=== PATIENT | female | born 1945 | race Caucasian/White ===

== ENCOUNTER 2020-01-12 14:55 | Outpatient (CLI) | payer MEDICARE, SELFPAY ==
--- NOTE | ~2020-01-12 | MM_ITS ---
EXAMINATION: MM screening [facility] w lacey HISTORY: Screening mammogram TECHNIQUE: Craniocaudal and mediolateral oblique 3-D tomosynthesis images were obtained and synthetic 2-D images were generated. CAD analysis was submitted and interpreted. COMPARISON: 01/09/2019, 01/04/2018, 12/31/2016 bilateral digital screening mammogram examinations BREAST PARENCHYMAL COMPOSITION: The breasts are almost entirely fatty. FINDINGS: There is a biopsy marker on the right; history of prior right partial mastectomy for breast cancer in 2007. There is no evidence of suspicious mass, calcification, or architectural distortion to suggest malignancy in either breast. There has been no suspicious interval change. IMPRESSION: 1. No mammographic evidence of malignancy. 2. Recommend routine screening mammography in one year. BI-RADS Category 2: Benign finding(s). Reviewed, dictated and finalized at location A.
== END 2020-01-12 14:56 | disposition home or self-care (01) ==
PROVIDERS: PCP Family Medicine Adolescent Medicine; Visit Provider Family Medicine Adolescent Medicine
DX: Z12.31 Encounter for screening mammogram for malignant neoplasm of breast (principal)
CPT/HCPCS: 77063; 77067

== ENCOUNTER 2020-02-02 00:15 | Outpatient (CLI) | payer MEDICARE, SELFPAY ==
[2020-02-02 20:58] LABS: SARS-CoV-2 RNA PCR Negative
== END 2020-02-02 00:16 | disposition home or self-care (01) ==
LOC: ANHCOVIDDT 00:16
PROVIDERS: PCP Family Medicine Adolescent Medicine; Visit Provider Internal Medicine Gastroenterology
DX: Z01.812 Encounter for preprocedural laboratory examination (principal); Z11.59 Encounter for screening for other viral diseases
CPT/HCPCS: 87635; C9803; U0003

== ENCOUNTER 2020-02-05 01:16 | Day surgery (SDC) | payer MEDICARE, SELFPAY ==
[2020-01-30 13:19] VITALS: BMI 30.4
--- NOTE | 2020-02-05 08:24 | WPDANESEPPF ---
Anes - Initial Pre Proc Eval Procedure: Operation Date: 02/05/20 09:30 Proposed Procedures p Colonoscopy - Edmund Cuevas MD Date/Time: 02/05/20 08:24 Surgeon: Edmund Cuevas MD Pre Op Diagnosis: abn stool Patient Data Age: 74 Gender: F Height: 1.64 m Weight: 81.8 kg Allergies Allergy/AdvReac Type Severity Reaction Status Date / Time adhesive tape Allergy Rash Verified 02/05/20 08:19 Home Medications Medication Instructions Recorded Confirmed Type aspirin [Julio Aspirin] 325 mg PO DAILY 01/30/20 01/30/20 History hydrochlorothiazide 50 mg PO DAILY PRN 01/30/20 01/30/20 History Patient hx anesthesia problems: none Family hx anesthesia problems: none PMFSH Past Medical History Medical History (Updated 02/05/20 @ 08:32 by Javi Prater MD) Arthritis Cancer BREAST - HAD 2007 LUMPECTOMY Irregular heartbeat HAD 2 AV NODES, 2003 HAD ABLATION Family History Family History (Updated 04/05/14 @ 07:13 by DOCTOR UNKNOWN) Father Family history of coronary artery disease Social History Social History Smoking status: Never smoker Second hand tobacco smoke exposure: No Alcohol intake: current Anes - Eval Final PreProcedure Day of Procedure 02/05/20 08:24 Patient weight: obese Heart: regular rate and rhythm Lungs: clear to auscultation and normal air movement Airway: Mallampati scale class II Neurological: alert and oriented Last oral intake: >/= 8 hours ASA classification: III Emergent: no Anesthetic plan: proceed Anesthesia type and monitoring: general GIVS Informed Consent: The patient's anesthetic plan and its attendant risks and benefits were discussed with the patient/family/POA. Questions were solicited and answers provided to the satisfaction of the patient/family/POA.
[2020-02-05 08:38] VITALS: BP 107/57; PULSE 76; RESP 20; TEMP 36.1; O2SAT 97
[2020-02-05] MEDS: LACTATED RINGERS 1,000 ML 150 ML IV CONT (08:42)
--- NOTE | 2020-02-05 08:59 | WPDGICN ---
Assessment and Plan Assessment and plan (1) Positive FIT (fecal immunochemical test): Code(s): R19.5 - Other fecal abnormalities Status: Acute Assessment and Plan: Patient had positive stool FIT test. She has had discomfort with the hemorrhoids. In occasional left-sided abdominal pain. Plan is for screening colonoscopy it has been 10 years since last screening exam. High-fiber diet is advised. Further recommendations will be given after endoscopy. GI Consult Note Consult date/time: 02/05/20 08:59 HPI: Ruby Callahan is a 74 year old female seen in evaluation at the request of DR Jd Acosta. Patient reported to have a positive FIT test as an outpatient. She states she has had hemorrhoid problems with a rate occasional rectal pain discomfort in blood with wiping. Patient has had a history of a fall with subsequent discomfort on her left arm and left side of her abdomen. That has persisted. She was treated empirically for diverticulitis with Cipro because of the left-sided abdominal discomfort. Review of Systems Review of Systems: All systems reviewed & are unremarkable except as noted in HPI and below PMFSH Past Medical History Medical History Arthritis Cancer BREAST - HAD 2007 LUMPECTOMY Irregular heartbeat HAD 2 AV NODES, 2003 HAD ABLATION Family History Family History Father Family history of coronary artery disease Social History Social History Smoking status: Never smoker Second hand tobacco smoke exposure: No Alcohol intake: current Meds Home Medications and Allergies Home Medications Medication Instructions Recorded Confirmed Type aspirin [Julio Aspirin] 325 mg PO DAILY 01/30/20 01/30/20 History hydrochlorothiazide 50 mg PO DAILY PRN 01/30/20 01/30/20 History Allergies Allergy/AdvReac Type Severity Reaction Status Date / Time adhesive tape Allergy Rash Verified 02/05/20 08:19 Vital Signs Vital Signs - 24 hr 02/05/20 08:38 Temperature 36.1 C L Pulse Rate 76 Respiratory Rate 20 Blood Pressure 107/57 L Pulse Oximetry 97 Exam Narrative: Exam Narrative: Physical exam reveals patient to be alert. Vital signs stable. HEENT exam unremarkable. Lungs are clear to auscultation and percussion. Heart is without murmur or extra sounds. Abdominal exam bowel sounds are present soft nontender with no hepatosplenomegaly. Digital external rectal exam normal.
[2020-02-05] MEDS: SIMETHICONE ORAL SUSPENSION 20 MG/0.3 ML 30 ML BOTTLE 0.6 ML IRRIGATION (09:51)
[2020-02-05 10:00] VITALS: BP 91/50; PULSE 66; RESP 19; O2SAT 96
[2020-02-05 10:10] VITALS: BP 89/47; PULSE 61; RESP 15; O2SAT 96
[2020-02-05 10:15] VITALS: BP 91/51; PULSE 60; RESP 13; O2SAT 95
== END 2020-02-05 10:29 | disposition home or self-care (01) ==
PROVIDERS: PCP Family Medicine Adolescent Medicine; Visit Provider Internal Medicine Gastroenterology
PROC: 0DJD8ZZ Inspection of Lower Intestinal Tract, Via Natural or Artificial Opening Endoscopic (ICD-10-PCS; CPT 45378; principal; 2020-02-05 09:30)
DX: K92.1 Melena (principal); D12.5 Benign neoplasm of sigmoid colon; K57.30 Diverticulosis of large intestine without perforation or abscess without bleeding; K64.8 Other hemorrhoids; Z79.82 Long term (current) use of aspirin; Z85.3 Personal history of malignant neoplasm of breast
CPT/HCPCS: 45385; 88305; J2001; J2704; J7120

== ENCOUNTER 2020-09-27 13:42 | Outpatient (CLI) | payer MEDICARE, SELFPAY ==
--- NOTE | ~2020-09-27 | DEXA_ITS ---
Bone Density Report Name: Ruby Callahan Age: 74 Sex: Female Ethnicity: White Date of : 1945 Indication: postmenopausal; height loss; cancer; Referring Provider: ROSAURA DURHAM Study: Bone densitometry was performed. Exam Date: September 27, 2020 Accession number: [id number] Bone Density: Region BMD T-score Z-score Classification AP Spine (L1-L4) 1.047 0.0 2.5 Normal Femoral Neck (Left) 0.814 -0.3 1.8 Normal Total Hip (Left) 0.945 0.0 1.9 Normal Total Hip Bilateral Avg 0.941 0.0 1.9 Normal Femoral Neck (Right) 0.801 -0.4 1.7 Normal Total Hip (Right) 0.937 0.0 1.8 Normal World Health Organization criteria for BMD impression classify patients as: Normal (T-score at or above -1.0), Osteopenia (T-score between -1.0 and -2.5), or Osteoporosis (T-score at or below -2.5). 10-year Fracture Risk: FRAX not reported because: All T-scores for Spine Total, Hip Total, Femoral Neck at or above -1.0 Previous Exams: Region Exam Age BMD T-score BMD Change BMD Change Date g/cm2 vs Baseline vs Previous AP Spine(L1-L4) 09/27/2020 74 1.047 0.0 0.071(7.3%)# 0.017(1.7%) 05/31/2017 71 1.030 -0.2 0.054(5.6%)# 0.010(1.0%) 12/26/2014 69 1.020 -0.2 0.044(4.5%)# 0.030(3.0%)# 12/23/2012 67 0.990 -0.5 0.014(1.4%)# -0.008(-0.8%)# 11/17/2010 65 0.998 -0.4 0.022(2.2%) -0.034(-3.3%)* 08/27/2008 62 1.032 -0.1 0.056(5.8%)* 0.056(5.8%)* 08/17/2005 59 0.976 -0.6 Total Hip(Left) 09/27/2020 74 0.945 0.0 -0.068(-6.7%)# -0.022(-2.3%) 05/31/2017 71 0.967 0.2 -0.046(-4.5%)# -0.014(-1.4%) 12/26/2014 69 0.981 0.3 -0.032(-3.2%)# 0.058(6.2%)# 12/23/2012 67 0.923 -0.2 -0.090(-8.8%)# -0.091(-8.9%)# 11/17/2010 65 1.014 0.6 0.001(0.1%) -0.011(-1.1%) 08/27/2008 62 1.025 0.7 0.012(1.2%) 0.012(1.2%) 08/17/2005 59 1.013 0.6 Total Hip(Right) 09/27/2020 74 0.937 0.0 -0.049(-4.9%)# -0.026(-2.7%) 05/31/2017 71 0.963 0.2 -0.023(-2.3%)# 0.003(0.3%) 12/26/2014 69 0.960 0.1 -0.025(-2.6%)# -0.008(-0.9%)# 12/23/2012 67 0.968 0.2 -0.017(-1.7%)# -0.013(-1.4%)# 11/17/2010 65 0.982 0.3 -0.004(-0.4%) -0.012(-1.2%) 08/27/2008 62 0.993 0.4 0.008(0.8%) 0.008(0.8%) 08/17/2005 59 0.985 0.4 *Denotes significance at 95% confidence level, LSC for AP Spine = 0.022 g/cm2, LSC for Total Hip = 0.027 g/cm2 Clinical Information Provided by Patient: Has used the following medicat
== END 2020-09-27 13:43 | disposition home or self-care (01) ==
LOC: ANHIMG 13:43
PROVIDERS: Family Provider Family Medicine Adolescent Medicine; PCP Family Medicine Adolescent Medicine; Visit Provider Obstetrics & Gynecology
DX: Z78.0 Asymptomatic menopausal state (principal)
CPT/HCPCS: 77080

== ENCOUNTER 2021-01-14 16:46 | Outpatient (CLI) | payer MEDICARE, SELFPAY ==
--- NOTE | ~2021-01-14 | MM_ITS ---
EXAMINATION: MM screening [facility] BI w lacey HISTORY: Screening mammogram TECHNIQUE: Craniocaudal and mediolateral oblique 3-D tomosynthesis images were obtained and synthetic 2-D images were generated. CAD analysis was submitted and interpreted. COMPARISON: 01/12/2020, 01/26/2019, 01/04/2018 bilateral digital screening mammogram examinations BREAST PARENCHYMAL COMPOSITION: The breasts are almost entirely fatty. FINDINGS: There is a biopsy marker on the right; history of prior benign right breast biopsy x2 and 2 008 partial mastectomy for breast cancer. There is no evidence of suspicious mass, calcification, or architectural distortion to suggest malignancy in either breast. There has been no suspicious interva l change. IMPRESSION: 1. No mammographic evidence of malignancy. 2. Recommend routine screening mammography in one year. BI-RADS Category 2: Benign finding(s). Reviewed, dictated and finalized at location A.
== END 2021-01-14 16:47 | disposition home or self-care (01) ==
LOC: ANHIMG 16:51
PROVIDERS: PCP Family Medicine Adolescent Medicine; Visit Provider Family Medicine Adolescent Medicine
DX: Z12.31 Encounter for screening mammogram for malignant neoplasm of breast (principal)
CPT/HCPCS: 77063; 77067

== ENCOUNTER 2022-04-06 14:09 | Outpatient (CLI) | payer MEDICARE, SELFPAY ==
--- NOTE | ~2022-04-06 | MM_ITS ---
EXAMINATION: MM screening [facility] BI w lacey HISTORY: Screening mammogram TECHNIQUE: Craniocaudal and mediolateral oblique 3-D tomosynthesis images were obtained and synthetic 2-D images were generated. CAD analysis was submitted and interpreted. COMPARISON: 01/14/2021, 01/12/2020, 01/09/2019 BREAST PARENCHYMAL COMPOSITION: There are scattered areas of fibroglandular density. FINDINGS: There is no suspicious mass, calcification, or architectural distortion to suggest malignan cy in either breast. There has been no suspicious interval change. IMPRESSION: 1. No mammographic evidence of malignancy. 2. Recommend routine screening mammography in one year. BI-RADS Category 1: Negative Reviewed, dictated and finalized at location A.
== END 2022-04-06 14:10 | disposition home or self-care (01) ==
LOC: ANHIMG 14:11
PROVIDERS: PCP Family Medicine Adolescent Medicine; Visit Provider Family Medicine Adolescent Medicine
DX: Z12.31 Encounter for screening mammogram for malignant neoplasm of breast (principal)
CPT/HCPCS: 77063; 77067

== ENCOUNTER 2022-12-01 15:01 | Outpatient (CLI) | payer MEDICARE, SELFPAY ==
[2022-12-01 15:38] LABS: Alanine Aminotransferase 21 U/L (6-35); Albumin Level 4.3 g/dL (3.5-5.1); Alkaline Phosphatase 69 U/L (38-126); Anion Gap 6 mmol/L (8-16); Aspartate Amino Transferase 26 U/L (14-36); Bilirubin,Total 0.5 mg/dL (0.2-1.3); Blood Urea Nitrogen 13 mg/dL (7-17); Calcium 9.4 mg/dL (8.4-10.2); Carbon Dioxide 29 mmol/L (22-30); Chloride 103 mmol/L (98-107); Estimated Glomerular Filt Rate 53; Glucose 102 mg/dL (65-110); Potassium 4.3 mmol/L (3.4-5.0); Sodium 138 mmol/L (137-145)
== END 2022-12-01 15:02 | disposition home or self-care (01) ==
PROVIDERS: PCP Family Medicine Adolescent Medicine; Visit Provider Family Medicine Adolescent Medicine
DX: R10.12 Left upper quadrant pain (principal); R10.32 Left lower quadrant pain; R19.7 Diarrhea, unspecified
CPT/HCPCS: 36415; 80053; 84443

== ENCOUNTER → 2022-12-03 13:18 | Outpatient (CLI) | payer MEDICARE, SELFPAY ==
--- NOTE | ~2022-12-03 | CT_ITS ---
EXAMINATION: CT abdomen pelvis wo con DATE: 12/03/2022 13:35 INDICATION: Left-sided abdominal TECHNIQUE: Computed tomography (CT) of the abdomen and pelvis was performed without intravenous contr ast. The dose-length product (DLP) was 892.78 mGy-cm. Automated exposure control and iterative recons truction technique were employed. COMPARISON: None FINDINGS: Minimal dependent atelectasis is present in the lung bases. The heart size is normal. The l iver, spleen, pancreas, gallbladder, and adrenal glands are normal. The kidneys are unremarkable. No stones are identified in the kidneys, ureters, or bladder. No hydronephrosis or hydroureter. No patho logically enlarged abdominal or pelvic lymph nodes are identified. Colonic diverticulosis is present without evidence of diverticulitis. No free intraperitoneal gas or evidence of bowel obstruction. The re is a 2.9 cm simple cyst of the left adnexa. There is a ashley appearance of the small bowel mesente ry which could reflect sclerosing mesenteritis. A fat-containing umbilical hernia is noted. There is mild lumbar spondylosis. IMPRESSION: 1. No CT correlate for the patient's symptoms. Reviewed, dictated and finalized at location L.
== END ==
PROVIDERS: PCP Family Medicine Adolescent Medicine; Visit Provider Family Medicine Adolescent Medicine
DX: R10.12 Left upper quadrant pain (principal); R10.32 Left lower quadrant pain
CPT/HCPCS: 74176

== ENCOUNTER 2022-12-08 13:13 | Outpatient (CLI) | payer MEDICARE, SELFPAY ==
[2022-12-08 13:38] LABS: Hematocrit 39.1 % (37.0-47.0); Hemoglobin 13.3 g/dL (12.0-15.0); Mean Corpuscular Hemoglobin 34.5 pg (26-34); Mean Corpuscular Volume 101.3 fl (80-100); Mean Platelet Volume 11.5 fl (7.4-10.4); Platelet Count Result 226 k/mm3 (150-375); Red Blood Count 3.86 M/mm3 (4.2-5.4); Red Cell Distribution Width 11.9 % (11.5-14.5); White Blood Count 5.7 K/mm3 (4.5-10.0)
== END 2022-12-08 13:14 | disposition home or self-care (01) ==
LOC: ANHLAB 13:15
PROVIDERS: PCP Family Medicine Adolescent Medicine; Visit Provider Family Medicine Adolescent Medicine
DX: R10.32 Left lower quadrant pain (principal); R10.12 Left upper quadrant pain
CPT/HCPCS: 36415; 85027

== ENCOUNTER → 2023-06-22 11:58 | Outpatient (CLI) | payer MEDICARE, SELFPAY ==
--- NOTE | ~2023-06-22 | MM_ITS ---
EXAMINATION: MM screening [facility] BI w lacey HISTORY: Screening mammogram TECHNIQUE: Craniocaudal and mediolateral oblique 3-D tomosynthesis images were obtained and synthetic 2-D images were generated. CAD analysis was submitted and interpreted. COMPARISON: 04/06/2022, 01/14/2021, 01/12/2020 BREAST PARENCHYMAL COMPOSITION: There are scattered areas of fibroglandular density. FINDINGS: No suspicious mass, calcification, or architectural distortion are identified in either saida ast to suggest malignancy. There has been no suspicious interval change. IMPRESSION: 1. No mammographic evidence of malignancy. 2. Recommend routine screening mammography in one year. BI-RADS Category 1: Negative Reviewed, dictated and finalized at location A. CTOR OF SUSTAINABILITY
== END ==
PROVIDERS: PCP Family Medicine Adolescent Medicine; Visit Provider Obstetrics & Gynecology
DX: Z12.31 Encounter for screening mammogram for malignant neoplasm of breast (principal)
CPT/HCPCS: 77063; 77067

== ENCOUNTER 2023-09-30 14:53 | Outpatient (CLI) | payer MEDICARE, SELFPAY ==
[2023-10-02 02:18] LABS: CA-125 16 U/mL (<35)
== END 2023-09-30 14:54 | disposition home or self-care (01) ==
LOC: ANHLAB 14:55
PROVIDERS: PCP Family Medicine Adolescent Medicine; Visit Provider Obstetrics & Gynecology
DX: N83.202 Unspecified ovarian cyst, left side (principal); N83.9 Noninflammatory disorder of ovary, fallopian tube and broad ligament, unspecified; R19.09 Other intra-abdominal and pelvic swelling, mass and lump
CPT/HCPCS: 36415; 86304

== ENCOUNTER → 2023-10-05 13:32 | Outpatient (CLI) | payer MEDICARE, SELFPAY ==
--- NOTE | ~2023-10-05 | US_ITS ---
EXAMINATION: US pelvic complete w TV DATE: 10/05/2023 14:04 INDICATION: Unspecified ovarian cyst TECHNIQUE: Multiple transabdominal and endovaginal sonographic images of the pelvis were obtained. COMPARISON: CT, 12/03/2022 FINDINGS: The uterus measures 5.6 x 2.0 x 3.3 cm. The endometrial complex measures 2 mm. The right ov casey is not visualized however no right adnexal abnormality is seen. The left ovary measures 3.0 x 3.7 x 2.9 cm and contains a 3.4 cm simple cyst. There is normal vascular flow in the left ovary. There i s no free fluid in the pelvis. IMPRESSION: 1. 3.4 cm simple cyst of the left ovary. Follow-up ultrasound in 12 months is recommended. Reviewed, dictated and finalized at location L. ECTION OFFICER IMPRESSION: 1. 3.4 cm simple cyst of the left ovary. Follow-up ultrasound in 12 months is r ecommended.
== END ==
PROVIDERS: PCP Family Medicine Adolescent Medicine; Visit Provider Obstetrics & Gynecology
DX: N83.292 Other ovarian cyst, left side (principal)
CPT/HCPCS: 76830; 76856

== ENCOUNTER 2023-11-02 13:38 | Outpatient (CLI) | payer MEDICARE, SELFPAY ==
--- NOTE | ~2023-11-02 | CT_ITS ---
EXAMINATION: CT abdomen pelvis wo con DATE: 11/02/2023 13:53 INDICATION: Generalized abdominal pain TECHNIQUE: Computed tomography (CT) of the abdomen and pelvis was performed without intravenous contr ast. The dose-length product (DLP) was 928.48 mGy-cm. Automated exposure control and iterative recons truction technique were employed. COMPARISON: 12/03/2022 FINDINGS: Minimal dependent atelectasis is present in the lung bases. The heart size is normal. The l iver, spleen, pancreas, gallbladder, and adrenal glands are normal. The kidneys are unremarkable. No pathologically enlarged abdominal or pelvic lymph nodes are identified. No free intraperitoneal gas o r evidence of bowel obstruction. There is an unchanged mild ashley appearance to the small bowel mesen anirudh which can be seen in the setting of sclerosing mesenteritis. Colonic diverticulosis is present w ithout evidence of diverticulitis. There is a stable 2.8 cm simple cyst of the left adnexa. There are umbilical and right inguinal hernias containing fat. There is mild lumbar spondylosis. IMPRESSION: 1. No CT correlate for the patient's symptoms. Reviewed, dictated and finalized at location F.
== END 2023-11-02 13:39 ==
LOC: MICIMG 13:39
PROVIDERS: PCP Family Medicine Adolescent Medicine; Visit Provider Family Medicine Adolescent Medicine
DX: R10.84 Generalized abdominal pain (principal)
CPT/HCPCS: 74176

== ENCOUNTER 2024-03-09 13:34 | Outpatient (CLI) | payer MEDICARE, SELFPAY ==
--- NOTE | ~2024-03-09 | US_ITS ---
US pelvic complete w TV Ordering provider: Artemio Robles MD History: . 6 month f/u . Comparison: None. Technique: Transabdominal and endovaginal ultrasound of the pelvis (Doppler ultrasound interrogation techniques used as needed for this exam.) FINDINGS: CERVIX: Normal. UTERUS: Measures 4.3 x1.9 x3.7 cm in length which is within normal limits and is anteverted. No myom etrial masses. ENDOMETRIUM: Normal in thickness measuring 3.1 mm. (No endometrial masses, or cysts. Fluid is seen in the endometrial cavity. CUL DE SAC: No free fluid. RIGHT OVARY: Not visualized. LEFT OVARY: Normal in size measuring 2.9x 3.4x 2.5 cm. Normal echotexture. Doppler vascular flow pres ent. Simple cyst is seen measuring 2.3 x 3 x 2.1 cm. ADNEXA: Normal. No mass. IMPRESSION: Simple cyst in the left ovary. Otherwise, normal pelvic ultrasound. Reviewed, dictated and finalized at location A.
== END 2024-03-09 13:35 ==
LOC: MICIMG 13:35
PROVIDERS: PCP Family Medicine Adolescent Medicine; Visit Provider Obstetrics & Gynecology
DX: N83.202 Unspecified ovarian cyst, left side (principal)
CPT/HCPCS: 76830; 76856

== ENCOUNTER 2024-04-04 13:53 | Outpatient (CLI) | payer MEDICARE, SELFPAY ==
[2024-04-06 10:59] LABS: CA-125 13 U/mL (<35)
== END 2024-04-04 13:54 | disposition home or self-care (01) ==
PROVIDERS: PCP Family Medicine Adolescent Medicine; Visit Provider Obstetrics & Gynecology
DX: R19.09 Other intra-abdominal and pelvic swelling, mass and lump (principal); N83.9 Noninflammatory disorder of ovary, fallopian tube and broad ligament, unspecified
CPT/HCPCS: 36415; 86304

== ENCOUNTER 2024-05-10 08:27 | Day surgery (SDC) | payer MEDICARE, SELFPAY ==
[2024-04-26 14:41] VITALS: BMI 34.0
[2024-05-02 09:25] VITALS: BMI 29.5
[2024-05-10 08:57] VITALS: BP 105/74; PULSE 69; RESP 15; TEMP 36.4; O2SAT 97
[2024-05-10] MEDS: LACTATED RINGERS 1,000 ML 150 ML IV CONT (09:03)
--- NOTE | 2024-05-10 09:32 | PM.HPGS ---
History of Present Illness History of Present Illness Consent: Risks, benefits, and alternatives have been discussed and questions answered. Patient agrees to proceed with procedure. Chief complaint: Nausea, Vomiting, IBS w/o Diarrhea, ABD Pain Narrative: Ruby Callahan is a 78 year old female endoscopy and EGD. Patient complains of intermittent nausea vomiting. She has intermittent diarrhea. She states symptoms have intensified since having COVID several years ago. She denies any blood in her stools. 5 years ago had a colonoscopy with adenomatous polyp polyp identified. Family history noncontributory. Patient referred today for both colonoscopy and EGD to assess more thoroughly. Review of Systems Review of Systems: All systems reviewed & are unremarkable except as noted in HPI and below PMFSH Past Medical History Medical History History of breast cancer 2007 Irregular heartbeat HAD 2 AV NODES, 2003 HAD ABLATION Nausea & vomiting Other specified personal risk factors, not elsewhere classified Positive FIT (fecal immunochemical test) Surgical History Surgical History H/O eye surgery H/O lumpectomy 2008 History of bilateral cataract extraction 2020 Hx of tonsillectomy Family History Family History Father Family history of coronary artery disease Acute myocardial infarction Depression Heart disease Mother Eye cancer Other Breast cancer Colon polyp Social History Social History Smoking status: Never smoker Second hand tobacco smoke exposure: No Alcohol intake: current Alcohol use details: OCCASSIONAL/SOCIAL Substance use: never Substance use type: does not use Lack of Transportation: No Lack of Food: Never True Current Housing: I Have Housing Concerned About Future Housing: No Difficulty Paying Gas/Electric Bills: No Difficulty Paying for Meds: No Currently Unemployed: No Education: High School Diploma/GED Living arrangements: with family Occupation/Education: retired Gender identity (if verbalized by the patient): Female Sexual Orientation (if Verbalized by the Patient): Straight or Heterosexual Spiritual care concerns: No Agree to blood products: Yes Meds Home Medications and Allergies Home Medications Medication Instructions Recorded Confirmed Type calcium 600 mg (as 2 cap PO BID 12/16/21 05/10/24 History carbonate)-vitamin D3 12.5 mcg (500 unit) capsule (Calcium with Vit D3) [id number] 8 mg-folic 400 1 tablet PO DAILY 12/16/21 05/10/24 History mcg-K 50 mcg-lutein 300 mcg tablet (Centrum Silver Women) vit A 300 mcg-C 200 mg-E 27 1 tablet PO DAILY 12/16/21 05/10/24 History mg-lutein 2 mg and minerals tablet (Ocuvite with Lutein) acetaminophen 325 mg capsule 325 mg PO Q6H PRN Pain 08/20/22 05/10/24 History (Tylenol) hydrochlorothiazide 50 mg tablet 50 mg PO DAILY PRN Edema #90 tabs 04/06/24 05/10/24 Rx Culturelle 1 tab-cap PO DAILY 05/02/24 05/10/24 History Allergies Allergy/AdvReac Type Severity Reaction Status Date / Time adhesive tape Allergy Rash Verified 05/10/24 08:56 Vital Signs Vital Signs - 24 hr 05/10/24 08:57 Temperature 97.5 F L Pulse Rate 69 Respiratory Rate 15 Blood Pressure 105/74 Pulse Oximetry 97 Oxygen Delivery Room Air Exam Narrative: Physical exam reveals patient to be alert. Vital signs stable. HEENT exam is unremarkable. Patient is anicteric. Lungs are clear to auscultation and percussion. Heart is without murmur or extra sounds. Abdomen bowel sounds are present soft nontender with no hepatosplenomegaly. Digital external rectal exam is normal. Assessment and Plan Assessment and plan (1) Generalized abdominal pain:
--- NOTE | 2024-05-10 09:36 | WPDANESEPPF ---
Anes - Initial Pre Proc Eval Procedure: Operation Date: 05/10/24 10:00 Proposed Procedures p Esophagogastroduodenoscopy - Edmund Cuevas MD s Diagnostic Colonoscopy - Edmund Cuevas MD Date/Time: 05/10/24 09:36 Surgeon: Edmund Cuevas MD Pre Op Diagnosis: Nausea, Vomiting, IBS w/o Diarrhea, ABD Pain Patient Data Age: 78 Gender: F Height: 1.63 m Weight: 81.25 kg Last Vital Signs Temp 36.4 C L 05/10/24 08:57 Pulse 69 05/10/24 08:57 Resp 15 05/10/24 08:57 BP 105/74 05/10/24 08:57 Pulse Ox 97 05/10/24 08:57 O2 Del Method Room Air 05/10/24 08:57 Allergies Allergy/AdvReac Type Severity Reaction Status Date / Time adhesive tape Allergy Rash Verified 05/10/24 08:56 Home Medications Medication Instructions Recorded Confirmed Type calcium 600 mg (as 2 cap PO BID 12/16/21 05/10/24 History carbonate)-vitamin D3 12.5 mcg (500 unit) capsule (Calcium with Vit D3) [id number] 8 mg-folic 400 1 tablet PO DAILY 12/16/21 05/10/24 History mcg-K 50 mcg-lutein 300 mcg tablet (Centrum Silver Women) vit A 300 mcg-C 200 mg-E 27 1 tablet PO DAILY 12/16/21 05/10/24 History mg-lutein 2 mg and minerals tablet (Ocuvite with Lutein) acetaminophen 325 mg capsule 325 mg PO Q6H PRN Pain 08/20/22 05/10/24 History (Tylenol) hydrochlorothiazide 50 mg tablet 50 mg PO DAILY PRN Edema #90 tabs 04/06/24 05/10/24 Rx Culturelle 1 tab-cap PO DAILY 05/02/24 05/10/24 History Patient hx anesthesia problems: none Family hx anesthesia problems: none Results Review: All pre-operative results and documents have been reviewed as part of the pre-operative evaluation. [facility] Past Medical History Medical History History of breast cancer 2007 Irregular heartbeat HAD 2 AV NODES, 2003 HAD ABLATION Nausea & vomiting Other specified personal risk factors, not elsewhere classified Positive FIT (fecal immunochemical test) Surgical History Surgical History H/O eye surgery H/O lumpectomy 2007 History of bilateral cataract extraction 2020 Hx of tonsillectomy Family History Family History Father Family history of coronary artery disease Acute myocardial infarction Depression Heart disease Mother Eye cancer Other Breast cancer Colon polyp Social History Social History Smoking status: Never smoker Second hand tobacco smoke exposure: No Alcohol intake: current Alcohol use details: OCCASSIONAL/SOCIAL Substance use: never Substance use type: does not use Lack of Transportation: No Lack of Food: Never True Current Housing: I Have Housing Concerned About Future Housing: No Difficulty Paying Gas/Electric Bills: No Difficulty Paying for Meds: No Currently Unemployed: No Education: High School Diploma/GED Living arrangements: with family Occupation/Education: retired Gender identity (if verbalized by the patient): Female Sexual Orientation (if Verbalized by the Patient): Straight or Heterosexual Spiritual care concerns: No Agree to blood products: Yes Anes - Eval Final PreProcedure Day of Procedure 05/10/24 09:36 Patient weight: obese Heart: regular rate and rhythm Lungs: clear to auscultation Airway: Mallampati scale class 1 Neurological: alert and oriented Last oral intake: >/= 8 hours ASA classification: II Emergent: no Anesthetic plan: proceed Anesthesia type and monitoring: general GIVS Results Review: All pre-operative results and documents have been reviewed as part of the pre-operative evaluation. Informed Consent: The patient's anesthetic plan and its attendant risks and benefits were discussed with the patient/family/POA. Questions were solicited and answers provided to the satisfaction of the pa
[2024-05-10 10:49] VITALS: BP 101/58; PULSE 77; RESP 16; O2SAT 98
--- NOTE | 2024-05-10 10:57 | WPDANESPN ---
Anes - Prog Note Post-Op Date/Time: 05/10/24 10:57 Cardiovascular status: normal Respiratory status: normal Airway patency: baseline Mental status: baseline Post-Op hydration status: normal Vital Signs: Last Vital Signs Temp 36.4 C L 05/10/24 08:57 Pulse 69 05/10/24 08:57 Resp 15 05/10/24 08:57 BP 105/74 05/10/24 08:57 Pulse Ox 97 05/10/24 08:57 O2 Del Method Room Air 05/10/24 08:57 Pain Score (VAS): 0 I/O: Intake & Output 05/09/24 05/10/24 05/10/24 23:59 07:59 15:59 Intake Total 300 Balance 300 Post-procedural complaints: none Patient Feedback: Patient satisfied with anesthetic care.
[2024-05-10 10:59] VITALS: BP 106/58; PULSE 78; RESP 15; O2SAT 98
[2024-05-10 11:09] VITALS: BP 112/58; PULSE 66; RESP 15; O2SAT 100
== END 2024-05-10 11:32 | disposition home or self-care (01) ==
PROVIDERS: PCP Family Medicine Adolescent Medicine; Visit Provider Internal Medicine Gastroenterology
PROC: 0DJ08ZZ Inspection of Upper Intestinal Tract, Via Natural or Artificial Opening Endoscopic (ICD-10-PCS; CPT 43235; principal; 2024-05-10 10:00)
PROC: 0DJD8ZZ Inspection of Lower Intestinal Tract, Via Natural or Artificial Opening Endoscopic (ICD-10-PCS; CPT 45378; 2024-05-10 10:00)
DX: R10.84 Generalized abdominal pain (principal); R11.2 Nausea with vomiting, unspecified; R19.7 Diarrhea, unspecified; K57.30 Diverticulosis of large intestine without perforation or abscess without bleeding; K64.8 Other hemorrhoids; K57.10 Diverticulosis of small intestine without perforation or abscess without bleeding
CPT/HCPCS: 45380; 43239

== ENCOUNTER 2024-05-10 09:10 | Outpatient (NON) | payer MEDICARE, SELFPAY | END 2024-05-10 09:11 | disposition home or self-care (01) | LOC: ANHLAB 05-11 09:11 | PROVIDERS: PCP Family Medicine Adolescent Medicine; Visit Provider Internal Medicine Gastroenterology | DX: K29.80 Duodenitis without bleeding (principal); K63.89 Other specified diseases of intestine | CPT/HCPCS: 88305 ==

== ENCOUNTER 2024-06-23 12:46 | Outpatient (CLI) | payer MEDICARE, SELFPAY ==
--- NOTE | ~2024-06-23 | MM_ITS ---
EXAMINATION: MM screening [facility] BI w lacey HISTORY: Screening mammogram TECHNIQUE: Craniocaudal and mediolateral oblique 3-D tomosynthesis images were obtained and synthetic 2-D images were generated. CAD analysis was submitted and interpreted. COMPARISON: 06/22/2023, 04/06/2022, 01/14/2021 BREAST PARENCHYMAL COMPOSITION:Not Dense. There are scattered areas of fibroglandular density. FINDINGS: No suspicious mass, calcification, or architectural distortion are identified in either saida ast to suggest malignancy. There has been no suspicious interval change. IMPRESSION: No mammographic evidence of malignancy. Recommend routine screening mammography in one year. BI-RADS Category 1: Negative Reviewed, dictated and finalized at location . RARY AGENT
== END 2024-06-23 12:47 | disposition home or self-care (01) ==
PROVIDERS: PCP Family Medicine Adolescent Medicine; Visit Provider Obstetrics & Gynecology
DX: Z12.31 Encounter for screening mammogram for malignant neoplasm of breast (principal)
CPT/HCPCS: 77063; 77067

== ENCOUNTER 2024-06-23 13:32 | Outpatient (CLI) | payer MEDICARE, SELFPAY ==
[2024-06-26 13:57] LABS: H pylori Ag Stool RESULT: Not Detected
== END 2024-06-23 13:33 | disposition home or self-care (01) ==
LOC: ANHLAB 13:33
PROVIDERS: PCP Family Medicine Adolescent Medicine; Visit Provider Internal Medicine Gastroenterology
DX: A04.8 Other specified bacterial intestinal infections (principal)
CPT/HCPCS: 87338

== ENCOUNTER 2024-09-07 09:37 | Outpatient (CLI) | payer MEDICARE, SELFPAY ==
--- NOTE | ~2024-09-07 | CT_ITS ---
EXAMINATION: CT abdomen pelvis w con DATE: 09/07/2024 10:06 INDICATION: Left lower quadrant abdominal pain TECHNIQUE: Computed tomography (CT) of the abdomen and pelvis was performed with 100 mL Omnipaque-350 intravenous contrast. Automated exposure control and iterative reconstruction technique were employe d. The dose-length product was 944.27 mGy-cm. COMPARISON: None FINDINGS: Mild discoid atelectasis in the lingula and right lower lobe. Heart size is normal. No pericardial or pleural effusion. Liver, gallbladder, spleen, pancreas, bilateral adrenal glands and kidneys are nor mal. There is moderate colonic diverticulosis with a sigmoid predominance. There is no adjacent infla mmatory change to suggest diverticulitis. Small bowel and appendix are normal. Bladder, uterus and r ight adnexa are normal. 3.1 cm left adnexal cyst. No free intraperitoneal gas or fluid. No pathologic ally enlarged abdominal or pelvic lymphadenopathy. There is calcified atherosclerosis of the aorta an d many of the other arteries. Anatomic variant circumaortic anterior and posterior left renal veins. Small fat-containing umbilical and right inguinal hernias. No free intraperitoneal gas or fluid. No p athologically enlarged abdominal or pelvic lymphadenopathy. Mild lumbar and moderate lower thoracic s pondylosis with multilevel severe lumbar facet osteoarthritis. IMPRESSION: 1. No acute intra-abdominal/pelvic process. 2. Moderate diverticulosis. 3. Small fat-containing umbilical and right inguinal hernias. Reviewed, dictated and finalized at location B. O PRODUCER
[2024-09-07 10:01] LABS: Estimated Glomerular Filt Rate 60
--- OUTSIDE RECORDS SUMMARY | 2024-09-07 10:09 | XMS_ITS | Clinical Summary ---
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
--- OUTSIDE RECORDS SUMMARY | 2024-09-07 10:09 | XMS_ITS | Encounter Summary ---
Author Organization [employer] Address [address] [place] [address] Care Team Providers [facility] Supervisor Name Role Phone Unavailable Primary Care Provider Unavailabl e Encounter Details Date Type Department Care Team (Latest Contact Info) Description 02/13/2005 Outpatient Historical [facility] OB GYN Ruby Vega MD NO ADDRESS ON FILE MITRAL VALVE DISORDER (Primary Dx) Social History Tobacco Use Types Packs/Day Years Used Date Smoking Tobacco: Never Assessed Comments Unknown Sex and Gender Information Value Date Recorded Sex Assigned at Not on file Legal Sex Female 5:00 AM [employer] Gender Identity Not on file Sexual Orientation Not on file documented as of this encounter Plan of Treatment Not on file documented as of this encounter Procedures Procedure Name Priority Date/Time Associated Diagnosis Comments CBC WITH DIFFERENTIAL Routine 02/13/2005 11:47 AM CDT CBC WITH DIFFERENTIAL Routine 02/13/2005 11:47 AM CDT PTT Routine 02/13/2005 11:47 AM CDT PROTIME-INR Routine 02/13/2005 11:47 AM CDT BASIC METABOLIC PANEL Routine 02/13/2005 11:47 AM CDT documented in this encounter Results * (ABNORMAL) CBC WITH DIFFERENTIAL (02/13/2005 11:47 AM CDT) NEUTROPHILS 55 45 - 70 % INTERFAC E SYSTEM LYMPHOCYTES 28 16 - 45 % INTERFAC E SYSTEM MONOCYTES 8 3 - 13 % INTERFACE SYSTEM EOSINOPHILS 8(H) 0 - 7 % INTERFAC E SYSTEM BASOPHILS 1 0 - 2 % INTERFACE SYSTEM NEUTROPHIL ABSOLUTE 2.64 1.90 - 7.00 K/uL INTERFACE SYSTEM LYMPHOCYTE ABSOLUTE 1.34 0.70 - 4.50 K/uL INTERFACE SYSTEM MONOCYTE ABSOLUTE 0.39 0.10 - 1.30 K/uL INTERFACE SYSTEM EOSINOPHIL ABSOLUTE 0.38 0.00 - 0.70 K/uL INTERFACE SYSTEM BASOPHILS ABSOLUTE 0.03 0.00 - 0.20 K/uL INTERFACE SYSTEM 02/13/2005 11:4 7 AM CDT Ruby Ventura MD HEMATOLOGY ORDERABLES Final Result Performing Organization Address City/[facility] de Phone Number INTERFACE SYSTEM Refer to clinic/hospital department * (ABNORMAL) CBC WITH DIFFERENTIAL (02/13/2005 11:47 AM CDT) WBC 4.8 4.0 - 9.8 K/uL INTERFACE SYSTEM RBC 3.92 3.90 - 4.90 M/uL INTERFACE SYSTEM HEMOGLOBIN 13.4 11.8 - 14.8 g/dL INTERFACE SYSTEM HEMATOCRIT 39.3 35.5 - 44.0 % INTERFACE SYSTEM MCV 100.3(H) 82.0 - 99.0 fL INTERFACE SYSTEM MCH 34.2(H) 27.2 - 32.6 pg INTERFACE SYSTEM MCHC 34.1 31.5 - 35.5 % INTERFACE SYSTEM RDW 12.7 11.5 - 14.5 % INTERFACE SYSTEM RDW-STDEV 45.9 37.1 - 48.7 fL INTERFACE SYSTEM PLATELETS 225 140 - 350 K/uL INTERFACE SYSTEM MPV 11.8 9.3 - 12.4 fL INTERFACE SYSTEM 02/13/2005 11:4 7 AM CDT Ruby Ventura MD HEMATOLOGY ORDERABLES Final Result Performing Organization Address City/[facility]/ZIP Co de Phone Number INTERFACE SYSTEM Refer to clinic/hospital department * PTT (02/13/2005 11:47 AM CDT) PTT 31.5 25.0 - 35.0 Seconds INTERFACE SYSTEM Comment: PTT Therapeutic Range: Heparin Level ? PTT (seconds) <0.10 units/mL ? <45 0.10 - 0.30 units/mL ? 45 - 65 0.30 - 0.70 units/mL* ? 65 - 106* 0.70 - 1.00 units/mL ? 106 - 137 *corresponds to therapeutic range for unfractionated heparin 02/13/2005 11:4 7 AM CDT Ruby Ventura MD HEMATOLOGY ORDERABLES Final Result Performing Organization Address [facility] Phone Number INTERFACE SYSTEM Refer to clinic/hospital department * PROTIME-INR (02/13/2005 11:47 AM CDT) PROTIME 13.8 12.9 - 15.7 Seconds INTERFACE SYSTEM INR 1.0 0.9 - 1.1 INTERFACE SYSTEM Comment: INR Therapeutic Range: Adult: 2.0 - 3.0 for pulmonary embolism or prophylaxis against venous thrombosis or systemic embolization. 2.0 - 3.0 for patients with tissue heart valves. ?? 2.5 - 3.5 for patients with mechanical heart valves or post VT. Pediatric ??(12 years and under): 1.5 - 3.0 Although the target range in children is not well established , INR values of 1.5 - 3.0 are recommended for most patients. Higher values have been used in children with prosthetic cardiac valves and hereditary clotting disorders. (<3 days) therapeutic ranges have not been established. 02/13/2005 11:4 7 AM CDT Ruby Ventura MD HEMATOLOGY ORDERABLES Final Result Performing Organization Address [facility] de Phone Number INTERFACE SYSTEM Refer to clinic/hospital department * BASIC METABOLIC PANEL (02/13/2005 11:47 AM CDT) GLUCOSE 98 65 - 109 mg/dL INTERFACE SYSTEM CREATININE 0.8 0.4 - 1.2 mg/dL INTERFACE SYSTEM CALCIUM 9.2 8.6 - 10.2 mg/dL INTERFACE SYSTEM BUN 13 6 - 20 mg/dL INTERFACE SYSTEM SODIUM 143 135 - 145 mmol/L INTERFACE SYSTEM POTASSIUM 3.6 3.5 - 4.9 mmol/L INTERFACE SYSTEM CHLORIDE 105 96 - 108 mmol/L INTERFACE SYSTEM CO2 27 22 - 30 mmol/L INTERFACE SYSTEM 02/13/2005 11:4 7 AM CDT us Ruby Ventura MD CHEMISTRY ORDERABLES Final R esult INTERFACE SYSTEM Refer to clinic/hospital department documented in this encounter Visit Diagnoses Diagnosis Mitral valve disorders(424.0)- Primary Mitral valve disorders documented in this encounter
--- OUTSIDE RECORDS SUMMARY | 2024-09-07 10:09 | XMS_ITS | Data Portability ---
Author Organization [place] [facility], Main Office Address [address] [place] [address] Care Team Providers Care Associate Data Scientist Name Role Phone KIMMY FLORES Primary Care Provider KIMMY FLORES Referring Provider Assessment Encounter Date Assessment Date Assessment LastModified by Organization Details LastModified Time 12/07/2023 12/07/2023 By previous x-ra y exam the patient is noted to have moderately severe primary osteoarthritis left knee joint under sterile conditions I injected the patient's left knee joint in the office with Orthovisc injection number 3. I will see her back as needed we can do this again in 6 months versus cortisone in between she will let us know when she needs anything else she voiced understanding agrees above plan she will call for any further problems difficulties or questions. Not available 12/07/2023 15:03:00 02/17/2024 02/17/2024 The patient has recurrent trochanteric bursitis of the right hip. Under sterile conditions at her request I injected the patient's right hip trochanteric bursa in the office with 4 cc 0.5% Marcaine and 20 mg of Kenalog. The patient tolerated the procedure well. I will see her back as needed. We talked about stretching and icing as well she voiced understanding agrees above plan she will call for any further problems difficulties or questions. Not available 02/17/2024 14:10:18 06/08/2024 06/08/2024 The patient has severe primary osteoarthritis of the left knee joint with [id number]-[id number] changes in the medial compartment. She also has chronic right hip trochanteric bursitis it has been 6 months since she has had a cortisone injection this worked very well for her last time her pain has flared up in both her knee and her hip under sterile conditions I injected the patient's left knee joint in the office today with Orthovisc injection number 1. I will see her back next week for the 2nd injection. She also has chronic trochanteric bursitis of the right hip under sterile conditions I injected the patient's right hip trochanteric bursa in the office with 4 cc 0.5% bupivacaine and 20 mg of Kenalog. Patient tolerated procedure well. The patient voiced understanding agrees above plan she will continue with current conservative measures and call for any further problems difficulties or questions. Not available 06/08/2024 14:29:08 06/15/2024 06/15/2024 The patient has severe primary osteoarthritis left knee joint and chronic trochanteric bursitis of the right hip. Both pain symptoms are resolving with treatment, today the patient's right hip feels good after shot of cortisone last week. Today under sterile conditions I injected the patient has left knee joint in the office with Orthovisc injection number 2. I will see her back next week for the 3rd injection left knee. She voiced understanding agrees with the above plan she will call for any further problems difficulties or questions. Not available 06/15/2024 14:03:04 06/22/2024 06/22/2024 The patient has severe primary osteoarthritis left knee joint. Under sterile conditions I injected the patient's left knee joint in the office today with Orthovisc injection number 3. The patient tolerated the procedure well. She is doing well after the 1st 2 rounds of injections hopefully she will continue to have good relief for many months. We can do this again in 6 months versus doing cortisone in between that time. I will see her back as needed she will call us when she is ready for anything else she voiced understanding and agreed with the above plan she will call for any further problems difficulties or questions. Not available 06/22/2024 14:11:50 Plan of Treatment Reminders Order Date Submit Date Provider Last Modified By Organization Details Last Modified Time Details Appointments Any 2024 01:00P TMOAS Melchor Not available Not available Not available Any 2024 01:00P TOMAS Melchor Not available Not available Not available Any 2024 01:00P TOMAS Melchor Not available Not available Not available Lab None recorded. Referral None recorded. Procedures knee aspiratio n/injecti on (PROC) 2023 024 [email or web address] In-Office Order, Internal Use Only DO Not Attach Compendium DO Not Attach Compendium, Do Not Delete/merge, [id number] 12/07/2023 14:29:47 injection /aspirati on joint/bur sa (PROC) - in office procedure , administe red by provider 2023 024 [email or web address] 1 In-Office Order, Internal Use Only DO Not Attach Compendium DO Not Attach Compendium, Do Not Delete/merge, [id number] 02/17/2024 13:54:38 injection /aspirati on joint/bur sa (PROC) 2023 024 [email or web address] In-Office Order, Internal Use Only DO Not Attach Compendium DO Not Attach Compendium, Do Not Delete/merge, [id number] 06/08/2024 13:53:59 knee aspiratio n/injecti on (PROC) 2023 024 [email or web address] In-Office Order, Internal Use Only DO Not Attach Compendium DO Not Attach Compendium, Do Not Delete/merge, [id number] 06/08/2024 13:53:59 knee aspiratio n/injecti on (PROC) 2023 024 [email or web address] In-Office Order, Internal Use Only DO Not Attach Compendium DO Not Attach Compendium, Do Not Delete/merge, [id number] 06/15/2024 13:49:24 knee aspiratio n/injecti on (PROC) 2023 024 [email or web address] In-Office Order, Internal Use Only DO Not Attach Compendium DO Not Attach Compendium, Do Not Delete/merge, [id number] 06/22/2024 13:54:32 Surgeries None recorded. Imaging XR, hip + pelvis, unilatera l, 2 or 3 view 2023 024 [facility] [place], [address], [place], [address], 06/08/2024 15:52:25 XR, knee 2023 024 [facility] [place], [address], [place], [address], 06/08/2024 15:52:25 Medication Orders ORTHOVISC 30 mg/2 mL intra-art icular syringe 2023 024 [id number], [address] [place], [address], 12/09/2023 09:37:13 Kenalog 10 mg/mL suspensio n for injection 2023 024 Not available 02/17/2024 15:42:14 Marcaine (PF) 0.5 % (5 mg/mL) injection solution 2023 024 Not available 02/17/2024 15:42:14 bupivacai ne HCl 0.5 % (5 mg/mL) injection solution 2023 024 [id number], [address] [place], [address], 06/08/2024 15:52:25 Kenalog 10 mg/mL suspensio n for injection 2023 024 [id number], [address] [place], [address], 06/08/2024 15:52:25 ORTHOVISC 30 mg/2 mL intra-art icular syringe 2023 024 [id number], [address] [place], [address], 06/08/2024 15:52:25 ORTHOVISC 30 mg/2 mL intra-art icular syringe 2023 024 [id number], [address] [place], [address], 06/15/2024 14:03:40 ORTHOVISC 30 mg/2 mL intra-art icular syringe 2023 024 [id number], [address] [place], [address], 06/22/2024 14:55:29 Patient TargetsNo targets recorded. Patient InstructionsNo instructions recorded. Reason for Referral None Reported. Results Created Date Observation Date Name Description Value Unit Range Abnormal Flag Note LastModifiedBy Organization Detail LastModifiedTime 06/08/20 24 XR, hip + pelvi s, unila teral , 2 or 3 view No observ ation record ed. [facility] [place] [address], [place], [address], 06/08/2024 14:30:20 06/08/20 24 XR, knee No observ ation record ed. [facility] [place] [address], [place], [address], 06/08/2024 14:31:34 Result Notes None recorded. Problems Name Problem SNOMED Code Status Onset Date Resolution Date Notes Provider Name and Address Organization Details Recorded Time Spinal stenosis of lumbar region 64857822 Active 2021 Not Available [facility] 3 10:42:42 Low back pain 915438225 Active 2021 Not Available [facility] 3 10:42:43 Enthesopat hy of hip region 21472125 Active Not Available [facility] 3 10:42:43 Osteoarthr itis 563334613 Active Not Available [facility] 3 10:42:43 Brachial neuritis 04214763 Active Not Available [facility] 3 10:42:43 Neck pain 94576736 Active Not Available [facility] 3 10:42:43 Spinal stenosis in cervical region 64866534 Active Not Available [facility] 3 10:42:43 Pain in limb 19673185 Active Not Available [facility] 3 10:42:43 Pain of left knee joint 4117286643863 07 Active 2022 Shandra Dennis ATC L null, [place] [facility] 3 13:42:57 Osteoarthr itis of left knee joint 7052722075615 09 Active 2022 Shandra Dennis ATC L null, [place] [facility] 3 13:43:24 Pain in right hip joint 6180920836438 02 Active 2022 Quin Taylor RMChapis null, [place] [facility] 3 14:27:05 Trochanter ic bursitis of right hip 9395207641875 00 Active 2022 TOMAS Irving [address] [place] [address], [place], [address] , [place] [facility] 3 14:54:10 Problem Notes None recorded. Procedures Surgical History Date Name Laterality Status Provider Name and Address Organization Details Recorded Time 4 procedure on heart completed Shandra Dennis ATC L [place] [facility] 10/15/2022 14:17:21 Breast Surgery completed Not Available [facility] 10/07/2022 10:41:01 Eye Surgery completed Not Available [facility] 10/07/2022 10:41:01 Imaging Results Imaging Date Name Status LastModified by Organiz ation Details LastModified Time 06/08/2024 XR, hip + pelvis, unilateral , 2 or 3 view completed [facility] [place] [address], [place], [address], 06/08/2024 14:30:20 06/08/2024 XR, knee completed [facility] [place] [address], [place], [address], 06/08/2024 14:31:34 Procedure Notes None recorded. Medical Equipment None Reported. Allergies No known drug allergies Medications Name Sig Start Date Stop Date Status Note LastModified by Organization Details LastModified Time amoxicillin 500 mg capsule 1000 MG ORALLY EVERY 12 HOURS active Not Available Not Available No t Available anastrozole 1 mg tablet 10/11 completed Not Available Not Available Not Available prednisone 10 mg tablet PLEASE SEE ATTACHED FOR DETAILED DIRECTION S 11/17 completed Not Available Not Available Not Available azithromyci n 250 mg tablet 10/11 completed Not Available Not Available Not Available hydrochloro thiazide 50 mg tablet TAKE 1 TABLET BY MOUTH DAILY NEEDED FOR EDEMA active Not Available Not Available No t Available clarithromy sanjuana 500 mg tablet 500 MG ORALLY EVERY 12 HOURS active Not Available Not Available No t Available bupivacaine HCl 0.5 % (5 mg/mL) injection solution Take 20 mg by injection route. 2023 active Not Available Not Available Not Avai lable metronidazo le 250 mg tablet TAKE 1 TABLET BY MOUTH EVERY 8 HOURS UNTIL ALL ARE TAKEN active Not Available Not Available No t Available prednisone 10 mg tablets in a dose pack Take 1 tab by mouth, 3 times a day for 3 daysTake 1 tab by mouth 2 times a day for 2 daysTake 1 tab by mouth once a day for 1 day 11/17 completed Not Available Not Available Not Available Kenalog 10 mg/mL suspension for injection Take 20 mg by injection route. 2023 active NDC: 0003- 0494- 20 Not Available Not Available Not Available omeprazole 20 mg capsule,del ayed release 20 MG ORALLY TWICE A DAY active Not Available Not Available No t Available Marcaine (PF) 0.5 % (5 mg/mL) injection solution Take 4 mL by injection route. 2023 active NDC:0 78014 1050, HM066 9, 01/07 Not Available Not Available Not Available ORTHOVISC 30 mg/2 mL intra-artic ular syringe Inject 2 mL every week by intra-art icular route. 2023 active Not Available Not Available Not Avai lable nitrofurant oin monohydrate /macrocryst als 100 mg capsule TAKE 1 CAPSULE BY MOUTH TWICE A DAY FOR 7 DAYS WITH MEAL/FOOD active Not Available Not Available No t Available Euflexxa 10 mg/mL (mw 2.4-3.6 million) intra-artic ular syringe Inject 2.5 mL by intra-art icular route for 35 days. 11/17 completed Not Available Not Available Not Available calcium 1200 2021 active Not Available Not Available Not Avai lable hydrochloro thiazide 50 mg 11/17 completed Not Available Not Available Not Available Centrum 2021 active Not Available Not Available Not Avai lable Asprin Ec Low Dose 81 mg 11/17 completed Not Available Not Available Not Available Xifaxan 550 mg tablet active Not Available Not Available No t Available sodium,pota ssium,mag sulfates 17.5 gram-3.13 gram-1.6 gram oral soln TAKE DIRECTED PER WRITTEN INSTRUCTI ONS GIVEN TO YOU active Not Available Not Available No t Available ropivacaine (PF) 5 mg/mL (0.5 %) injection solution Take 20 mg by injection route. 11/17 completed [facility] 29002 -064- 01 Not Available Not Available Not Available Supartz FX 10 mg/mL intra-artic ular syringe Injection s given in the office by the doctor 11/17 completed [facility]: [address] -1 Not Available Not Available Not Available Paxlovid 300 mg (150 mg x 2)-100 mg tablets in a dose pack TAKE TWO 150 MG TABLETS OF NIRMATREL VIR WITH ONE 100 MG TABLET OF RITONAVIR TWICE DAILY FOR 5 DAYS 11/17 completed Not Available Not Available Not Available Vitals Date Recorded Body height Body mass index (BMI) Body weight Provider Name and Address Organization Details Last Updated DateTime 12/07/2023 165.1 cm 28.3 kg/m2 16588.7 g Judith Govea CNA [facility] 12/07/2023 14:27:26 Date Recorded Body height Body mass index (BMI) Body weight Provider Name and Address Organization Details Last Updated DateTime 02/17/2024 165.1 cm 28.3 kg/m2 92000.7 g SUSAN Dodd [facility] 02/17/2024 13:52:37 Date Recorded Body height Body mass index (BMI) Body weight Provider Name and Address Organization Details Last Updated DateTime 06/08/2024 165.1 cm 28.3 kg/m2 39405.7 g Judith Govea CNA [facility] [employer] [facility] 06/08/2024 13:50:59 Date Recorded Body height Body mass index (BMI) Body weight Provider Name and Address Organization Details Last Updated DateTime 06/15/2024 165.1 cm 28.3 kg/m2 15720.7 g Judith Govea CNA [facility] [employer] [facility] 06/15/2024 13:46:05 Date Recorded Body height Body mass index (BMI) Body weight Provider Name and Address Organization Details Last Updated DateTime 06/22/2024 165.1 cm 28.3 kg/m2 15931.7 g Judith Govea CNA [facility] [employer] [facility] 06/22/2024 13:53:07 Social History Question Answer Notes LastModified by [employer] ion Details LastModified Time Tobacco Smoking Status Never Smoker Judith Govea CNA null [facility] [employer] [facility] 11/18/2023 14:10:15 What Is Your Level Of Alcohol Consumption? Occasional [id number] Information not available 10/07/2022 What Was The Date Of Your Most Recent Tobacco Screening? 08/21/2021 [id number] Information not available 10/07/2022 Sex: Unknown Functional Status None recorded. Mental Status None recorded. Family History Relationship Description Onset Age of this Age Resolved Age Notes LastModified by Organization Details LastModified Time Father Heart disease [id number] Not available 10/07/2022 10:41:03 Father Family history of malignant neoplasm [id number] Not available 10/07/2022 10:41:03 Mother Alzheimer's disease [email or web address] Not available 2023 14:10:00 Medical History Condition Response ARTHRITIS Y CARDIAC ARRHYTHMIA Y CANCER: SPECIFY Y HEART ARRHYTHMIA Y Gynecological HistoryNo gynecological history recorded. Obstetrics History GPAL:G 0 P 0 0 0 0 Past Encounters Encounter ID Performer Location Encounter Start Date Encounter Closed Date Diagnosis/Indication Diagnosis SNOMED-CT Code Diagnosis ICD10 Code Diagnosis Note [id number] [facility] [place] [address] [place] [address] 08/21/2021 00:00:00 08/21/2021 14:55:00 [id number] [facility] [place] [address] [place] [address] 08/28/2021 00:00:00 08/28/2021 14:19:11 [id number] [facility] [place] [address] [place] [address] 09/04/2021 00:00:00 09/04/2021 14:00:29 [id number] [facility] [place] [address] [place] [address] 09/09/2021 00:00:00 09/09/2021 14:41:20 [id number] [facility] [place] [address] [place] [address] 09/18/2021 00:00:00 09/18/2021 14:09:01 [id number] [facility] [place] [address] [place] [address] 03/24/2022 00:00:00 03/24/2022 15:01:37 [id number] [facility] [place] [address] [place] [address] 03/31/2022 00:00:00 03/31/2022 14:50:06 [id number] [facility] [place] [address] [place] [address] 04/07/2022 00:00:00 04/07/2022 16:20:17 [id number] [facility] [place] [address] [place] [address] 05/07/2022 00:00:00 05/07/2022 14:01:57 [id number] TOMAS Irving [facility] [place] [address] [place] [address] 10/08/2022 13:33:39 10/08/2022 15:07:31 Pain of left knee joint 1936530070 94734 M25.562 Spinal francis nosis of lumbar region 03184736 M48.062 Osteoarthr itis of left knee joint 4891344545 96449 M17.12 Low back pain 624216992 M54.50 [id number] TOMAS Irving [facility] [place] [address] [place] [address] 10/15/2022 13:54:56 10/15/2022 16:30:33 Pain of left knee joint 1681490791 92901 M25.562 Spinal francis nosis of lumbar region 99178099 M48.062 Osteoarthr itis of left knee joint 4150693596 50740 M17.12 Low back pain 368715422 M54.50 [id number] TOMAS Irving [facility] [place] [address] [place] [address] 10/22/2022 13:38:15 10/22/2022 15:15:23 Spinal stenosis of lumbar region 19240955 M48.062 Pain of le ft knee joint 7768007258 43107 M25.562 Low back pain 885680048 M54.50 Osteoarthr itis of left knee joint 9268535878 47988 M17.12 [id number] [facility] [place] [address] [place] [address] 04/27/2023 14:11:07 04/27/2023 14:33:31 Osteoarthritis of left knee joint 5033458003 87311 M17.12 [id number] TOMAS Irving [facility] [place] [address] [place] [address] 05/04/2023 14:21:28 05/04/2023 14:50:24 Osteoarthritis of left knee joint 4648297069 02153 M17.12 Pain in ri ght hip joint 6248245538 08289 M25.551 Trochanter ic bursitis of right hip 8224341353 76632 M70.61 [id number] TOMAS Irving [facility] [place] [address] [place] [address] 05/18/2023 14:32:58 05/18/2023 14:52:30 Trochanteric bursitis of right hip 6464299561 92497 M70.61 Pain in ri ght hip joint 9112801333 55904 M25.551 Osteoarthr itis of left knee joint 0668893913 48828 M17.12 [id number] TOMAS Irving [facility] [place] [address] [place] [address] 08/19/2023 13:45:22 08/19/2023 15:15:16 Trochanteric bursitis of right hip 8250463608 39927 M70.61 Pain in ri ght hip joint 0420215273 78595 M25.001 [id number] TOMAS Irving [facility] [place] [address] [place] [address] 11/18/2023 13:48:49 11/18/2023 14:41:27 Pain in right hip joint 9589568618 90028 M25.551 Trochanter ic bursitis of right hip 5872155381 07671 M70.61 Osteoarthr itis of left knee joint 4940981681 71904 M17.12 Pain of le ft knee joint 2006353138 31782 M25.918 [id number] TOMAS Irving [facility] [place] [address] [place] [address] 11/25/2023 13:48:06 11/25/2023 14:06:54 Osteoarthritis of left knee joint 8626381673 30845 M17.12 Pain of le ft knee joint 0879135880 41930 M25.562 Trochanter ic bursitis of right hip 2518515308 89178 M70.61 [id number] TOMAS Irving [facility] [place] [address] [place] [address] 12/07/2023 14:25:17 12/07/2023 14:52:43 Osteoarthritis of left knee joint 2152582373 37268 M17.12 Pain of le ft knee joint 0080475536 85963 M25.403 [id number] TOMAS Irving [facility] [place] [address] [place] [address] 02/17/2024 13:49:58 02/17/2024 14:23:45 Pain in right hip joint 9865212573 51064 M25.551 Trochanter ic bursitis of right hip 4626088487 85853 M70.61 [id number] TOMAS Irving [facility] [place] [address] [place] [address] 06/08/2024 13:47:24 06/08/2024 14:24:33 Pain in right hip joint 4614083600 64538 M25.551 Trochanter ic bursitis of right hip 5854040460 50855 M70.61 Osteoarthr itis of left knee joint 1722718555 49357 M17.12 Pain of le ft knee joint 8096913245 01958 M25.757 [id number] TOMAS Irving [facility] [place] [address] [place] [address] 06/15/2024 13:42:38 06/15/2024 13:58:44 Osteoarthritis of left knee joint 0434685493 81584 M17.12 Pain of le ft knee joint 0676413646 32479 M25.562 Trochanter ic bursitis of right hip 9479856575 77652 M70.61 [id number] TOMAS Irving [facility] [place] [address] [place] [address] 06/22/2024 13:50:37 06/22/2024 14:12:07 Osteoarthritis of left knee joint 5890304171 43082 M17.12 Pain of le ft knee joint 1116221094 78199 M25.562 Health Concerns Section Related Observation LastModified by Organization Detai ls LastModified Time None Recorded Concern Status LastModified by Organization Details LastModified Time None Recorded Advance Directives Directive None Recorded Payers Encounter Date Sequence Insurance Name Policy Number Policy Mcfadden Covered Member ID Mcfadden Member ID Guarantor Name 12/07/2023 1 [place] Ruby Melanie Laytoniewicz [id number] Ruby Melanie Laytoniewicz 12/07/2023 2 [employer] - PLAN F (MEDICARE SUPPLEMENT) Ruby Melanie Laytoniewicz [id number] Ruby Navarro Robelluisiewicz 02/17/2024 1 [place] Ruby Melanie Laytoniewicz [id number] Ruby Melanie Laytoniewicz 02/17/2024 2 [employer] - PLAN F (MEDICARE SUPPLEMENT) Ruby Melanie Laytoniewicz [id number] Ruby Melanie Laytoniewicz 06/08/2024 1 [place] Ruby Melanie Laytoniewicz [id number] Ruby Melanie Laytoniewicz 06/08/2024 2 [employer] - PLAN F (MEDICARE SUPPLEMENT) Ruby Melanie Laytoniewicz [id number] Ruby Melanie Qiuwijuanito 06/15/2024 1 [place] Ruby Melanie Hustonysiewicz [id number] Ruby Melanie Laytoniewicz 06/15/2024 2 [employer] - PLAN F (MEDICARE SUPPLEMENT) Ruby Melanie Qiuwicz [id number] Ruby Melanie Quiwicz 06/22/2024 1 [place] Ruby Melanie Hustonysiewicz [id number] Ruby Melanie Hustonysiewicz 06/22/2024 2 [employer] - PLAN F (MEDICARE SUPPLEMENT) Ruby Melanie Qiuwicz [id number] Ruby Melanie Callahan Notes Date Note Type Note Provider Name and Address Organization Details Recorded Time 12/07/2023 text/html The patient is a n 78-year-old female who returns for Orthovisc injection number 3 Left knee. She is starting to get some relief from the 1st 2 rounds of injections not quite where she wants to be yet. I have advised her to give it some time in a month or so we will know for sure what she is going to get out of this. She does have moderately severe primary osteoarthritis with a sliver of joint space remaining in the medial compartment and essentially [id number] changes in the medial facet of the patellofemoral articulation. She has a mild varus deformity. She did state that she did a lot of walking last weekend at a large convention and was able to get through the entire day which before the 1st 2 rounds of injections she would not have made it by her report. She is doing better. She comes in today for the final shot. TOMAS Irving [address], [facility] [[email or web address] [address], [place], [address], [employer] [facility] 12/07/2023 15:03:13 02/17/2024 text/html Patient returns complaining of right hip pain she has trochanteric bursitis chronic in nature. We did a shot of cortisone 3 months ago this gave her great relief but she recently went on vacation sat in a car for a long time then did lots of walking and this has aggravated her hip again. She denies any groin pain previous x-rays show no significant problems there. She is very tender over the trochanteric region can not sleep on that side denies any new trauma or injury just an aggravation of her old bursitis as described above. She would like another shot of cortisone today she is failing conservative measures on her own at home. She states the pain is about 5 on a scale 1-10 today. TOMAS Irving [address], [place], [address], [employer] 02/17/2024 14:10:33 06/08/2024 text/html the patient retu rns for Orthovisc injection number 1 left knee. We are getting new x-rays today for an update on the progression of the osteoarthritis of the left knee. The patient also has chronic trochanteric bursitis of the right hip she has pain and tenderness over this region and we are going to get new x-rays of that today as well. Shots of cortisone have helped in the past for her right hip it has been 6 months since her last cortisone injection that is also been 6 months since her last gel shots in the left knee. She denies any new symptoms today no effusion or swelling no erythema heat or other signs of infection no weakness around the hip no pain in the groin. She has aching pain in the left knee worse with activity somewhat relieved by rest however she was on a 3 week vacation where she had lots of traveling and then sitting when she was on her trip visiting relatives states that this has affected her knee somewhat it feels more stiff and painful than typically. She states the pain is about a 5 on a scale of 1-10 today. She comes in today for treatment of her left knee on her right hip as described. the patient's previous past medical history was reviewed today with her in detail she denies any significant changes in her history. TOMAS Irving [address], [place], [address], Dine in 06/08/2024 14:32:02 06/15/2024 text/html patient returns for Orthovisc injection number 2 left knee. She is already starting to get some relief from the 1st injection last week. Last week I also injected her right hip for trochanteric bursitis she states this feels really good today and has helped resolve the pain there. The patient has severe primary osteoarthritis of the left knee joint with [id number] changes in medial compartment and chronic right hip trochanteric bursitis both are improving with treatment so far. TOMAS Irving [address], [place], [address], Dine in 06/15/2024 14:03:25 06/22/2024 text/html Patient returns for Orthovisc injection number 3 left knee. She is getting good relief from the 1st 2 rounds of injections and quite pleased so far. She has severe primary osteoarthritis of the left knee with [id number] changes in the medial compartment. Denies any problems today with the knee walking more comfortably. TOMAS Irving [address], [place], [address], Dine in 06/22/2024 14:12:30 OBGyn Episode No OBEpisode recorded.
--- OUTSIDE RECORDS SUMMARY | 2024-09-07 10:09 | XMS_ITS | Encounter Summary ---
Author Organization [employer] Address 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 Lianne Barnett MD [address] [place] [address] PAROX VENTRIC TACHYCARD (CMS/HCC) (Primary Dx) Social History Tobacco Use Types Packs/Day Years Used Date Smoking Tobacco: Never Assessed Comments Unknown Sex and Gender Information Value Date Recorded Sex Assigned at Not on file Legal Sex Female 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 Gender Identity Not on file Sexual Orientation Not on file documented as of this encounter Plan of Treatment Not on file documented as of this encounter Procedures Procedure Name Priority Date/Time Associated Diagnosis Comments PT AND APTT Routine 04/01/2005 6:30 AM CDT PLATELET COUNT Routine 04/01/2005 6:30 AM CDT BASIC METABOLIC PANEL Routine 04/01/2005 6:30 AM CDT documented in this encounter Results * BASIC METABOLIC PANEL (04/01/2005 6:30 AM CDT) GLUCOSE 96 65 - 109 mg/dL INTERFACE SYSTEM CREATININE 0.9 0.4 - 1.2 mg/dL INTERFACE SYSTEM CALCIUM 10.0 8.6 - 10.2 mg/dL INTERFACE SYSTEM BUN 12 6 - 20 mg/dL INTERFACE SYSTEM SODIUM 140 135 - 145 mmol/L INTERFACE SYSTEM POTASSIUM 3.8 3.5 - 4.9 mmol/L INTERFACE SYSTEM CHLORIDE 100 96 - 108 mmol/L INTERFACE SYSTEM CO2 30 22 - 30 mmol/L INTERFACE SYSTEM 04/01/2005 6:30 AM CDT Lianne Barnett MD CHEMISTRY ORDERABLES Final Re sult Performing Organization Address [facility] Co de Phone Number INTERFACE SYSTEM Refer to clinic/hospital department * PLATELET COUNT (04/01/2005 6:30 AM CDT) PLATELETS 232 140 - 350 K/uL INTERFACE SYSTEM MPV 11.2 9.3 - 12.4 fL INTERFACE SYSTEM 04/01/2005 6:30 AM CDT Lianne Barnett MD HEMATOLOGY ORDERABLES Final R esult Performing Organization Address [facility] de Phone Number INTERFACE SYSTEM Refer to clinic/hospital department * (ABNORMAL) PT AND APTT (04/01/2005 6:30 AM CDT) PTT 35.3(H) 25.0 - 35.0 Seconds INTERFACE SYSTEM Comment: PTT Therapeutic Range: Heparin Level ? PTT (seconds) <0.10 units/mL ? <45 0.10 - 0.30 units/mL ? 45 - 65 0.30 - 0.70 units/mL* ? 65 - 106* 0.70 - 1.00 units/mL ? 106 - 137 *corresponds to therapeutic range for unfractionated heparin PROTIME 13.4 12.9 - 15.7 Seconds INTERFACE SYSTEM INR 0.9 0.9 - 1.1 INTERFACE SYSTEM Comment: INR Therapeutic Range: Adult: 2.0 - 3.0 for pulmonary embolism or prophylaxis against venous thrombosis or systemic embolization. 2.0 - 3.0 for patients with tissue heart valves. ?? 2.5 - 3.5 for patients with mechanical heart valves or post AL. Pediatric ??(12 years and under): 1.5 - 3.0 Although the target range in children is not well established , INR values of 1.5 - 3.0 are recommended for most patients. Higher values have been used in children with prosthetic cardiac valves and hereditary clotting disorders. (<3 days) therapeutic ranges have not been established. 04/01/2005 6:30 AM CDT Lianne Barnett MD HEMATOLOGY ORDERABLES Final R esult INTERFACE SYSTEM Refer to clinic/hospital department documented in this encounter Visit Diagnoses Diagnosis Paroxysmal ventricular tachycardia (CMS/HCC)- Primary Paroxysmal ventricular tachycardia documented in this encounter
== END 2024-09-07 09:38 | disposition home or self-care (01) ==
PROVIDERS: PCP Family Medicine Adolescent Medicine; Visit Provider Internal Medicine Gastroenterology
DX: K57.30 Diverticulosis of large intestine without perforation or abscess without bleeding (principal); K42.9 Umbilical hernia without obstruction or gangrene; K40.90 Unilateral inguinal hernia, without obstruction or gangrene, not specified as recurrent
CPT/HCPCS: 74177; Q9967

== ENCOUNTER 2024-09-19 13:32 | Outpatient (CLI) | payer MEDICARE, SELFPAY ==
--- NOTE | ~2024-09-19 | US_ITS ---
EXAM: PELVIC ULTRASOUND HISTORY: N83.209 - Unspecified ovarian cyst, unspecified side COMPARISON: 03/09/2024. Reference is also made to the CT examination of the abdomen and pelvis dated 09/07/2024 FINDINGS: UTERUS: 4.1 x 2.3 x 3.4 cm. A The endometrial complex measures 5.4 mm. Fluid is redemonstrated within the endometrial complex, unchanged from prior. RIGHT OVARY: Despite prolonged interrogation, the right ovary was not visualized LEFT OVARY: The left ovary measures 2.6 x 3.0 x 2.7 cm. Dopplerable flow is identified A single anechoic avascular focus is identified within the left ovary measuring 19.6 x 26.1 x 20.5 mm , likely representing a simple cyst, decreased in size from previous examination 03/09/2024, when it me asured 23 x 30 x 21 mm. No free fluid is identified within the pelvis. IMPRESSION: Redemonstration of a simple cyst within the left ovary, decreased in size from previous examination p erformed 03/09/2024. Reviewed, dictated and finalized at location A. S MANAGER IMPRESSION: Redemonstration of a simple cyst within the left ovary, decreased in size from previous examination performed 03/09/2024.
== END 2024-09-19 13:33 | disposition home or self-care (01) ==
LOC: MICIMG 13:32
PROVIDERS: PCP Family Medicine Adolescent Medicine; Visit Provider Obstetrics & Gynecology
DX: N83.292 Other ovarian cyst, left side (principal)
CPT/HCPCS: 76830; 76856

== ENCOUNTER 2024-09-19 14:11 | Outpatient (CLI) | payer MEDICARE, SELFPAY ==
--- OUTSIDE RECORDS SUMMARY | 2024-09-19 14:55 | XMS_ITS | Encounter Summary ---
Author Organization [employer] Address 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 Lianne Barnett MD [address] [place] [address] PAROX VENTRIC TACHYCARD (CMS/HCC) (Primary Dx) Social History Tobacco Use Types Packs/Day Years Used Date Smoking Tobacco: Never Assessed Comments Unknown Sex and Gender Information Value Date Recorded Sex Assigned at Not on file 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 Gender Identity Not on file Sexual Orientation [...] ORDERABLES Final Re sult Performing Organization Address [facility] de Phone Number INTERFACE SYSTEM Refer to clinic/hospital department * PLATELET COUNT (04/01/2005 6:30 AM CDT) PLATELETS 232 140 - 350 K/uL INTERFACE SYSTEM MPV 11.2 9.3 - 12.4 fL INTERFACE SYSTEM 04/01/2005 6:30 AM CDT Lianne Barnett MD HEMATOLOGY ORDERABLES Final R esult Performing Organization Address [facility] de Phone Number INTERFACE SYSTEM Refer to clinic/hospital department * (ABNORMAL) PT AND APTT (04/01/2005 6:30 AM CDT) PTT 35.3(H) 25.0 - 35.0 Seconds INTERFACE SYSTEM Comment: PTT Therapeutic Range: Heparin Level PTT (seconds) <0.10 units/mL <45 0.10 - 0.30 units/mL 45 - 65 0.30 - 0.70 units/mL* 65 - 106* 0.70 - 1.00 units/mL 106 - 137 *corresponds to therapeutic range for unfractionated heparin PROTIME 13.4 12.9 - 15.7 Seconds INTERFACE SYSTEM INR 0.9 0.9 - 1.1 INTERFACE SYSTEM Comment: INR Therapeutic Range: Adult: 2.0 - 3.0 for pulmonary embolism or prophylaxis against venous thrombosis or systemic embolization. 2.0 - 3.0 for patients with tissue heart valves. 2.5 - 3.5 for patients with mechanical heart valves or post AL. Pediatric (12 years and under): 1.5 - 3.0 Although [...]
--- OUTSIDE RECORDS SUMMARY | 2024-09-19 14:55 | XMS_ITS | Clinical Summary ---
Author Organization [facility] Address [address] Attn: Epic Prelude ADT [place] [address] Care Team Providers Care Child Day Care Teacher Name Role Phone Unavailable Primary Care Provider Unavailabl e Social History Tobacco Use Types Packs/Day Years Used Date Smoking Tobacco: Never Assessed Comments Unknown Sex and Gender Information Value Date Recorded Sex Assigned at Not on file Legal Sex Female 5:00 AM CLINICAL PROGRAM DIRECTOR Gender Identity Not on file Sexual Orientation [...]
--- OUTSIDE RECORDS SUMMARY | 2024-09-19 14:55 | XMS_ITS | Encounter Summary ---
Author Organization [employer] Address 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.] unfractionated heparin 02/13/2005 11:4 7 AM CDT us Ruby Ventura MD HEMATOLOGY ORDERABLES Final Result Performing Organization Address [facility] [address]/[facility] Phone Number INTERFACE SYSTEM Refer to [...] patients with mechanical heart valves or post CT. Pediatric (12 years and under): 1.5 - [...] HEMATOLOGY ORDERABLES Final Result Performing Organization Address [facility] [address]/[facility] Phone Number INTERFACE SYSTEM Refer to [...]
--- OUTSIDE RECORDS SUMMARY | 2024-09-19 15:01 | XMS_ITS | Data Portability ---
Author Organization [place] [facility] [employer], Main Office Address [address] [place] [address] Care Team Providers Care Fabric Designer Name Role Phone KIMMY FLORES Primary Care [...] osteoarthritis of the left knee joint with hlju-mx-mfni changes in the medial compartment. She also [...] Modified Time Details Appointments Any 2024 01:00P TOMAS Melchor Not available [...] DO Not Attach Compendium, Do Not Delete/merge, [id number] 12/07/2023 14:29:47 injection /aspirati on joint/bur sa (PROC) - in office procedure , administe red by provider 2023 024 [email or web address] 1 In-Office Order, Internal Use Only DO Not Attach Compendium DO Not Attach Compendium, Do Not Delete/merge, [id number] 02/17/2024 13:54:38 injection /aspirati on joint/bur sa (PROC) 2023 024 [email or web address] In-Office Order, Internal Use Only DO Not Attach Compendium DO Not Attach Compendium, Do Not Delete/merge, [id number] 06/08/2024 13:53:59 knee aspiratio n/injecti on (PROC) 2023 024 [email or web address] In-Office Order, Internal Use Only DO Not Attach Compendium DO Not Attach Compendium, Do Not Delete/merge, [id number] 06/08/2024 13:53:59 knee aspiratio n/injecti on (PROC) 2023 024 [email or web address] In-Office Order, Internal Use Only DO Not Attach Compendium DO Not Attach Compendium, Do Not Delete/merge, [id number] 06/15/2024 13:49:24 knee aspiratio n/injecti on (PROC) 2023 024 [email or web address] In-Office Order, Internal Use Only DO Not Attach Compendium DO Not Attach Compendium, Do Not Delete/merge, [id number] 06/22/2024 13:54:32 Surgeries None recorded. Imaging XR, hip + pelvis, unilatera l, 2 or 3 view 2023 024 [facility] [place], [address], [place], [address], 06/08/2024 15:52:25 XR, knee 2023 024 [facility] [place], [address], [place], [address], 06/08/2024 15:52:25 Medication Orders ORTHOVISC 30 mg/2 mL intra-art icular syringe 2023 024 [id number], [address] [place], [address], 12/09/2023 09:37:13 Kenalog 10 mg/mL suspensio n for injection 2023 024 Not available 02/17/2024 15:42:14 Marcaine (PF) 0.5 % (5 mg/mL) injection solution 2023 024 Not available 02/17/2024 15:42:14 bupivacai ne HCl 0.5 % (5 mg/mL) injection solution 2023 024 [id number], [address] [place], [address], 06/08/2024 15:52:25 Kenalog 10 mg/mL suspensio n for injection 2023 024 [id number], [address] [place], [address], 06/08/2024 15:52:25 ORTHOVISC 30 mg/2 mL intra-art icular syringe 2023 024 [id number], [address] [place], [address], 06/08/2024 15:52:25 ORTHOVISC 30 mg/2 mL intra-art icular syringe 2023 024 [id number], [address] [place], [address], 06/15/2024 14:03:40 ORTHOVISC 30 mg/2 mL intra-art icular syringe 2023 024 [id number], [address] [place], [address], 06/22/2024 14:55:29 Patient TargetsNo targets recorded. Patient InstructionsNo instructions recorded. Reason for Referral None Reported. Results Created Date Observation Date Name Description Value Unit Range Abnormal Flag Note LastModifiedBy Organization Detail LastModifiedTime 06/08/20 24 XR, hip + pelvi s, unila teral , 2 or 3 view No observ ation record ed. [facility] [place] [address], [place], [address], 06/08/2024 14:30:20 06/08/20 24 XR, knee No observ ation record ed. [facility] [place] [address], [place], [address], 06/08/2024 14:31:34 Result Notes None recorded. Problems Name Problem SNOMED Code Status Onset Date Resolution Date Notes Provider Name and Address Organization Details Recorded Time Spinal stenosis of lumbar region 39410581 Active 2021 Not Available [facility] 3 10:42:42 Low back pain 462966509 Active 2021 Not Available [facility] 3 10:42:43 Enthesopat hy of hip region 55082404 Active Not Available [facility] 3 10:42:43 Osteoarthr itis 329844708 Active Not Available [facility] 3 10:42:43 Brachial neuritis 23807935 Active Not Available [facility] 3 10:42:43 Neck pain 92341517 Active Not Available [facility] 3 10:42:43 Spinal stenosis in cervical region 05961463 Active Not Available [facility] 3 10:42:43 Pain in limb 14720740 Active Not Available [facility] 3 10:42:43 Pain of left knee joint 8690667467428 07 Active 2022 Shandra Dennis ATC L null, [place] [facility] 3 13:42:57 Osteoarthr itis of left knee joint 3085585744208 09 Active 2022 Shandra Dennis ATC L null, [place] [facility] 3 13:43:24 Pain in right hip joint 7646871701566 02 Active 2022 Quin Taylor RMChapis null, [place] [facility] 3 14:27:05 Trochanter ic bursitis of right hip 5525716031844 00 Active 2022 TOMAS Irving [address] [place] [address], [place], [address] , [place] [facility] 3 14:54:10 Problem Notes None recorded. Procedures Surgical History Date Name Laterality Status Provider Name and Address Organization Details Recorded Time 4 procedure on heart completed Shandra Dennis ATC L [place] [facility] 10/15/2022 14:17:21 Breast Surgery completed Not Available [facility] 10/07/2022 10:41:01 Eye Surgery completed Not Available [facility] 10/07/2022 10:41:01 Imaging Results Imaging Date Name Status LastModified by Organiz ation Details LastModified Time 06/08/2024 XR, hip + pelvis, unilateral , 2 or 3 view completed [facility] [place] [address], [place], [address], 06/08/2024 14:30:20 06/08/2024 XR, knee completed [facility] [place] [address], [place], [address], 06/08/2024 14:31:34 Procedure Notes None recorded. Medical [...] mL by injection route. 2023 active NDC:0 57664 1050, HM066 9, 01/07 Not Available Not [...] 20 mg by injection route. 11/17 completed [facility] [address] -064- 01 Not Available Not Available Not Available [employer] 10 mg/mL intra-artic ular syringe Injection s given in the office by the doctor 11/17 completed [facility]: [address] -1 Not Available Not Available Not [...] Updated DateTime 12/07/2023 165.1 cm 28.3 kg/m2 88763.7 g Judith Govea CNA [facility] 12/07/2023 14:27:26 Date Recorded Body height Body mass index (BMI) Body weight Provider Name and Address Organization Details Last Updated DateTime 02/17/2024 165.1 cm 28.3 kg/m2 27057.7 g SUSAN Dodd [facility] 02/17/2024 13:52:37 Date Recorded Body height Body mass index (BMI) Body weight Provider Name and Address Organization Details Last Updated DateTime 06/08/2024 165.1 cm 28.3 kg/m2 57717.7 g Judith Govea CNA [facility] [employer] [facility] 06/08/2024 13:50:59 Date Recorded Body height Body mass index (BMI) Body weight Provider Name and Address Organization Details Last Updated DateTime 06/15/2024 165.1 cm 28.3 kg/m2 39323.7 g Judith Govea CNA [facility] [employer] [facility] 06/15/2024 13:46:05 Date Recorded Body height Body mass index (BMI) Body weight Provider Name and Address Organization Details Last Updated DateTime 06/22/2024 165.1 cm 28.3 kg/m2 95568.7 g Judith Govea CNA [facility] [employer] [facility] 06/22/2024 13:53:07 Social History Question Answer Notes LastModified by Yellowsmithizat ion Details LastModified Time Tobacco Smoking Status Never Smoker Judith Govea CNA null [facility] [employer] [facility] 11/18/2023 14:10:15 What Is Your Level Of Alcohol Consumption? Occasional [id number] Information not available 10/07/2022 What Was The Date Of Your Most Recent Tobacco Screening? 08/21/2021 [id number] Information not available 10/07/2022 Sex: Unknown Functional Status None recorded. Mental Status None recorded. Family History Relationship Description Onset Age of this Age Resolved Age Notes LastModified by Organization Details LastModified Time Father Heart disease [id number] Not available 10/07/2022 10:41:03 Father Family history of malignant neoplasm [id number] Not available 10/07/2022 10:41:03 Mother Alzheimer's disease [email or web address] Not available 2023 14:10:00 Medical History Condition Response HEART ARRHYTHMIA Y ARTHRITIS Y CARDIAC ARRHYTHMIA Y CANCER: SPECIFY Y Gynecological HistoryNo gynecological history recorded. Obstetrics History GPAL:G 0 P 0 0 0 0 Past Encounters Encounter ID Performer Location Encounter Start Date Encounter Closed Date Diagnosis/Indication Diagnosis SNOMED-CT Code Diagnosis ICD10 Code Diagnosis Note [id number] [facility] [place] [address] [place] [address] 08/21/2021 00:00:00 08/21/2021 14:55:00 [id number] [facility] [place] [address] [place] [address] 08/28/2021 00:00:00 08/28/2021 14:19:11 [id number] [facility] [place] [address] [place] [address] 09/04/2021 00:00:00 09/04/2021 14:00:29 [id number] [facility] [place] [address] [place] [address] 09/09/2021 00:00:00 09/09/2021 14:41:20 [id number] [facility] [place] [address] [place] [address] 09/18/2021 00:00:00 09/18/2021 14:09:01 [id number] [facility] [place] [address] [place] [address] 03/24/2022 00:00:00 03/24/2022 15:01:37 [id number] [facility] [place] [address] [place] [address] 03/31/2022 00:00:00 03/31/2022 14:50:06 [id number] [facility] [place] [address] [place] [address] 04/07/2022 00:00:00 04/07/2022 16:20:17 [id number] [facility] [place] [address] [place] [address] 05/07/2022 00:00:00 05/07/2022 14:01:57 [id number] TOMAS Irving [facility] [place] [address] [place] [address] 10/08/2022 13:33:39 10/08/2022 15:07:31 Pain of left knee joint 7226066930 62884 M25.562 Spinal francis nosis of lumbar region 40079730 M48.062 Osteoarthr itis of left knee joint 0812875633 91124 M17.12 Low back pain 346879706 M54.50 [id number] TOMAS Irving [facility] [place] [address] [place] [address] 10/15/2022 13:54:56 10/15/2022 16:30:33 Pain of left knee joint 2161017437 11783 M25.562 Spinal francis nosis of lumbar region 38153217 M48.062 Osteoarthr itis of left knee joint 9024683315 05450 M17.12 Low back pain 873753205 M54.50 [id number] TOMAS Irving [facility] [place] [address] [place] [address] 10/22/2022 13:38:15 10/22/2022 15:15:23 Spinal stenosis of lumbar region 67414134 M48.062 Pain of le ft knee joint 6492720884 90262 M25.562 Low back pain 057165984 M54.50 Osteoarthr itis of left knee joint 4443430730 66102 M17.12 [id number] [facility] [place] [address] [place] [address] 04/27/2023 14:11:07 04/27/2023 14:33:31 Osteoarthritis of left knee joint 6954389335 65795 M17.12 [id number] TOMAS Irving [facility] [place] [address] [place] [address] 05/04/2023 14:21:28 05/04/2023 14:50:24 Osteoarthritis of left knee joint 5301948823 69240 M17.12 Pain in ri ght hip joint 8819447422 42450 M25.551 Trochanter ic bursitis of right hip 8214358044 36103 M70.61 [id number] TOMAS Irving [facility] [place] [address] [place] [address] 05/18/2023 14:32:58 05/18/2023 14:52:30 Trochanteric bursitis of right hip 1820537255 69996 M70.61 Pain in ri ght hip joint 6946914620 83725 M25.551 Osteoarthr itis of left knee joint 4450894219 30669 M17.12 [id number] TOMAS Irving [facility] [place] [address] [place] [address] 08/19/2023 13:45:22 08/19/2023 15:15:16 Trochanteric bursitis of right hip 7657709525 13622 M70.61 Pain in ri ght hip joint 4407065561 40651 M25.627 [id number] TOMAS Irving [facility] [place] [address] [place] [address] 11/18/2023 13:48:49 11/18/2023 14:41:27 Pain in right hip joint 2188843289 30055 M25.551 Trochanter ic bursitis of right hip 4032894426 14678 M70.61 Osteoarthr itis of left knee joint 5114817659 59961 M17.12 Pain of le ft knee joint 5111590746 85408 M25.611 [id number] TOMAS Irving [facility] [place] [address] [place] [address] 11/25/2023 13:48:06 11/25/2023 14:06:54 Osteoarthritis of left knee joint 2320546146 96280 M17.12 Pain of le ft knee joint 1578756561 00916 M25.562 Trochanter ic bursitis of right hip 8706543931 72752 M70.61 [id number] OTMAS Irving [facility] [place] [address] [place] [address] 12/07/2023 14:25:17 12/07/2023 14:52:43 Osteoarthritis of left knee joint 4288749717 97998 M17.12 Pain of le ft knee joint 1295317218 41436 M25.647 [id number] TOMAS Irving [facility] [place] [address] [place] [address] 02/17/2024 13:49:58 02/17/2024 14:23:45 Pain in right hip joint 7467883243 70708 M25.551 Trochanter ic bursitis of right hip 2151564007 59119 M70.61 [id number] TOMAS Irving [facility] [place] [address] [place] [address] 06/08/2024 13:47:24 06/08/2024 14:24:33 Pain in right hip joint 7197349767 43764 M25.551 Trochanter ic bursitis of right hip 1990723469 15434 M70.61 Osteoarthr itis of left knee joint 4098340635 88537 M17.12 Pain of le ft knee joint 2756029355 27659 M25.683 [id number] TOMAS Irving [facility] [place] [address] [place] [address] 06/15/2024 13:42:38 06/15/2024 13:58:44 Osteoarthritis of left knee joint 4129243067 85685 M17.12 Pain of le ft knee joint 1376824723 22595 M25.562 Trochanter ic bursitis of right hip 0180487921 06270 M70.61 [id number] TOMAS Irving [facility] [place] [address] [place] [address] 06/22/2024 13:50:37 06/22/2024 14:12:07 Osteoarthritis of left knee joint 1402239021 82788 M17.12 Pain of le ft knee joint 2858459990 32721 M25.562 Health Concerns Section Related Observation LastModified by Organization Detai ls LastModified Time None Recorded Concern Status LastModified by Organization Details LastModified Time None Recorded Advance Directives Directive None Recorded Payers Encounter Date Sequence Insurance Name Policy Number Policy Mcfadden Covered Member ID Mcfadden Member ID Guarantor Name 12/07/2023 1 [place] Ruby Melanie Laytoniewicz [id number] Ruby Melanie Laytoniewicz 12/07/2023 2 [employer] - PLAN F (MEDICARE SUPPLEMENT) Ruby Melanie Laytoniewicz [id number] Ruby Navarro Robelluisiewicz 02/17/2024 1 [place] Ruby Melanie Laytoniewicz [id number] Ruby Melanie Laytoniewicz 02/17/2024 2 [employer] - PLAN F (MEDICARE SUPPLEMENT) Ruby Melanie Laytoniewicz [id number] Ruby Melanie Laytoniewicz 06/08/2024 1 [place] Ruby Melanie Laytoniewicz [id number] Ruby Melanie Laytoniewicz 06/08/2024 2 [employer] - PLAN F (MEDICARE SUPPLEMENT) Ruby Melanie Laytoniewicz [id number] Ruby Melanie Qiuwijuanito 06/15/2024 1 [place] Ruby Melanie Hustonysiewicz [id number] Ruby Melanie Laytoniewicz 06/15/2024 2 [employer] - PLAN F (MEDICARE SUPPLEMENT) Ruby Melanie Qiuwicz [id number] Ruby Melanie Qiuwicz 06/22/2024 1 [place] Ruby Melanie Hustonysiewicz [id number] Ruby Melanie Hustonysiewicz 06/22/2024 2 [employer] - PLAN F (MEDICARE SUPPLEMENT) Ruby Melanie Qiuwicz [id number] Ruby Melanie Callahan Notes Date Note Type [...] remaining in the medial compartment and essentially glsd-bn-igvp changes in the medial facet of the [...] final shot. TOMAS Irving [address], [facility] [address], [place], [address], [employer] [facility] [employer] 12/07/2023 15:03:13 02/17/2024 text/html Patient returns complaining [...] TOMAS Irving [address], [address], [place], [address], [facility] 02/17/2024 14:10:33 06/08/2024 text/html the patient retu [...] changes in her history. TOMAS Irving [address], [address], [place], [address], [employer] 06/08/2024 14:32:02 06/15/2024 text/html patient returns for [...] osteoarthritis of the left knee joint with hekw-ar-oftu changes in medial compartment and chronic right hip trochanteric bursitis both are improving with treatment so far. TOMAS Irving [address], [address], [place], [address], [employer] 06/15/2024 14:03:25 06/22/2024 text/html Patient returns for Orthovisc injection number 3 left knee. She is getting good relief from the 1st 2 rounds of injections and quite pleased so far. She has severe primary osteoarthritis of the left knee with iitd-ki-lhro changes in the medial compartment. Denies any problems today with the knee walking more comfortably. TOMAS Irving [address], [address], [place], [address], [facility] 06/22/2024 14:12:30 OBGyn Episode No OBEpisode recorded.
[2024-09-21 02:52] LABS: CA-125 11 U/mL (<35)
== END 2024-09-19 14:12 | disposition home or self-care (01) ==
LOC: ANHLAB 14:11
PROVIDERS: PCP Family Medicine Adolescent Medicine; Visit Provider Obstetrics & Gynecology
DX: R19.09 Other intra-abdominal and pelvic swelling, mass and lump (principal); N83.209 Unspecified ovarian cyst, unspecified side
CPT/HCPCS: 36415; 86304

== ENCOUNTER 2024-11-22 10:49 | Outpatient (CLI) | payer MEDICARE, SELFPAY ==
[2024-11-22 11:42] LABS: Anion Gap 8 mmol/L (4-12); Blood Urea Nitrogen 12 mg/dL (7-17); Calcium 8.8 mg/dL (8.4-10.2); Carbon Dioxide 26 mmol/L (22-30); Chloride 103 mmol/L (98-107); Estimated Glomerular Filt Rate > 60; Glucose 99 mg/dL (65-110); Potassium 4.4 mmol/L (3.4-5.0); Sodium 137 mmol/L (137-145)
--- OUTSIDE RECORDS SUMMARY | 2024-11-22 12:13 | XMS_ITS | Encounter Summary ---
Author Organization [employer] Address 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 de Phone Number INTERFACE SYSTEM Refer to clinic/hospital department * PLATELET COUNT (04/01/2005 6:30 AM CDT) PLATELETS 232 140 - 350 K/uL INTERFACE SYSTEM MPV 11.2 9.3 - 12.4 fL INTERFACE SYSTEM 04/01/2005 6:30 AM CDT Lianne [place] MD HEMATOLOGY ORDERABLES Final R esult Performing Organization Address [facility] de Phone Number INTERFACE SYSTEM Refer [...] patients with mechanical heart valves or post IA. Pediatric (12 years and under): 1.5 - [...]
--- OUTSIDE RECORDS SUMMARY | 2024-11-22 12:13 | XMS_ITS | Clinical Summary ---
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
--- OUTSIDE RECORDS SUMMARY | 2024-11-22 12:13 | XMS_ITS | Encounter Summary ---
Author Organization [facility] Address 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 Pediatric (12 years and under): 1.5 - [...] HEMATOLOGY ORDERABLES Final Result Performing Organization Address [facility] Phone Number INTERFACE SYSTEM Refer to [...]
== END 2024-11-22 10:50 | disposition home or self-care (01) ==
LOC: ANHSURGERY 10:53
PROVIDERS: Anesthesiology; PCP Family Medicine Adolescent Medicine; Visit Provider Obstetrics & Gynecology
DX: Z51.81 Encounter for therapeutic drug level monitoring (principal)
CPT/HCPCS: 36415; 80048

== ENCOUNTER 2024-11-29 00:31 | Day surgery (SDC) | payer MEDICARE, SELFPAY ==
[2024-11-20 10:24] VITALS: BMI 31.0
--- NOTE | 2024-11-20 10:53 | PC.NURSE ---
Report to the Outpatient Waiting Room, entrance under the green pavilion located off [facility], at time __8:00AM on date ___11/29/24____. Planned Procedure Time: __10:00AM .? Time changes happen often and if your time is changed the preop area will call you the afternoon before. - You and your visitor will be asked to self-screen and do not enter if you have any COVID symptoms. Please call surgeon if you need to reschedule. - A mask is optional within the hospital at this time. Patients may have clear liquids (water, carbonated beverages, clear teas, apple juice) until 3 hours prior to surgery (7:00AM) with a maximum of 20 ounces. - No food from midnight until time of surgery and no smoking, or chewing tobacco (or any form of nicotine). No chewing gum, candy or mints. Take only the following medications with a SIP of water on the morning of surgery: ___NONE DO NOT STOP ANY OF YOUR OTHER PRESCRIPTION MEDICATIONS PRIOR TO SURGERY EXCEPT THE FOLLOWING Hold all vitamins and supplements for 3 days per anesthesiologist.- LAST DOSE 11/25/24 Please no make-up, nail welsh, hairspray, perfume, deodorant, or body powder the day of surgery.? No jewelry (including any body piercings) or valuables the day of surgery, leave them at home.? Please take a shower or bath the night before, or the morning of, surgery with an antibacterial soap.? Wear comfortable, loose fitting clothing.? - Jewelry must be removed prior to entering the operating room.? Rings and piercings that are not removed may be cut off. - The hospital will not accept responsibility for valuables.? - Please leave all valuables, including medications, at home the day of surgery. If you are going home after surgery, a licensed driver starting gate must drive you home.? - NO public transportation without another adult if you receive anesthesia. - We recommend that an adult stay with you for 24 hours following discharge. - We also recommend that you do not drive, make important decision, drink alcoholic beverages, or take any drugs that were not prescribed by your health care provider for at least 24 hours after your discharge time. Follow any additional instructions given to you from your surgeon. Telephone instructions given to ____PATIENT and asked if any additional questions and then verbalized understanding. Patient advised to call surgeon office or pre surgery nurse liaison [phone] if any additional questions.
--- NOTE | 2024-11-28 14:52 | P.PNAN_ITS ---
Anes - Initial Pre Proc Eval Procedure: Operation Date: 11/29/24 10:00 Proposed Procedures p Hysteroscopy, Dilation and Curettage, Possible Removal Endometrial Lesions - Artemio Robles MD Date/Time: 11/28/24 14:52 Surgeon: Artemio Robles MD Pre Op Diagnosis: post menopausal bleeding Patient Data Age: 79 Gender: F Height: 1.63 m Weight: 82 kg Allergies Allergy/AdvReac Type Severity Reaction Status Date / Time adhesive tape AdvReac REDNESS/SKIN Verified 11/29/24 08:33 IRRITATION Home Medications ?Medication ?Instructions ?Recorded ?Confirmed ?Type calcium 600 mg (as 2 cap PO DAILY 12/16/21 11/29/24 History carbonate)-vitamin D3 12.5 mcg (500 unit) capsule (Calcium with Vit D3) [id number]-fojf 8 mg-folic 400 1 tablet PO DAILY 12/16/21 11/29/24 History mcg-K 50 mcg-lutein 300 mcg tablet (Centrum Silver Women) vit A 300 mcg-C 200 mg-E 27 1 tablet PO DAILY 12/16/21 11/29/24 History mg-lutein 2 mg and minerals tablet (Ocuvite with Lutein) hydrochlorothiazide 50 mg tablet 50 mg PO DAILY PRN Edema #90 tabs 04/06/24 11/23/24 Rx Culturelle 1 tab-cap PO DAILY 05/02/24 11/23/24 History Lactobacillus rhamnosus GG 10 1 cap PO DAILY 11/20/24 11/29/24 History billion cell capsule (Culturelle) acetaminophen 500 mg capsule 500 mg PO Q6H PRN pain 11/20/24 11/23/24 History acetaminophen 650 mg 650 mg PO Q12H PRN pain 11/20/24 11/23/24 History tablet,extended release (Arthritis Pain Relief (acetaminophen) ER) simethicone 180 mg capsule (Gas 180 mg PO BID PRN abdominal 11/20/24 11/23/24 History Relief (simethicone)) distention Patient hx anesthesia problems: none Family hx anesthesia problems: none Results Review: All pre-operative results and documents have been reviewed as part of the pre- operative evaluation. [facility] Past Medical History Medical History Colon, diverticulosis Nausea & vomiting Other specified personal risk factors, not elsewhere classified History of breast cancer 2007 Positive FIT (fecal immunochemical test) Irregular heartbeat HAD 2 AV NODES, 2004 HAD ABLATION Surgical History Surgical History H/O eye surgery History of bilateral cataract extraction 2019 Hx of tonsillectomy H/O lumpectomy 2007 Family History Family History Father Family history of coronary artery disease Acute myocardial infarction Depression Heart disease Mother Eye cancer Other Breast cancer Colon polyp Social History Social History Smoking status: Never smoker Second hand tobacco smoke exposure: No Alcohol intake: current Alcohol use details: OCCASSIONAL/SOCIAL Substance use: never Substance use type: does not use Lack of Transportation: No Lack of Food: Never True Current Housing: I Have Housing Concerned About Future Housing: No Difficulty Paying Gas/Electric Bills: No Difficulty Paying for Meds: No Currently Unemployed: No Education: High School Diploma/GED Living arrangements: with family Additional living arrangements comments: [place] Occupation/Education: retired Gender identity (if verbalized by the patient): Female Sexual Orientation (if Verbalized by the Patient): Straight or Heterosexual Spiritual care concerns: No Agree to blood products: Yes Anes - Eval Final PreProcedure Day of Procedure 11/28/24 14:52 Patient weight: obese Heart: regular rate and rhythm Lungs: clear to auscultation Airway: Mallampati scale class II Neurological: alert and oriented Last oral intake: >/= 8 hours ASA classification: III Emergent: no Anesthetic plan: proceed Anesthesia type and monitoring: general GIVS and standard monitoring Results Review: All pre-operative results and documents have been reviewed as part of the pre- operative evaluation. Informed Consent: The patient's anesthetic plan and its attendant risks and benefits were discussed with the patient/family/POA. Questions were solicited and answers provided to the satisfaction of the patient/family/POA.
--- OUTSIDE RECORDS SUMMARY | 2024-11-29 00:34 | XMS_ITS | Encounter Summary ---
Author Organization [facility] Address 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 Lianne Barnett MD [address] [place] [address] PAROX VENTRIC TACHYCARD (CMS/HCC) (Primary Dx) Social History Tobacco Use Types Packs/Day Years Used Date Smoking Tobacco: Never Assessed Comments Unknown Sex and Gender Information Value Date Recorded Sex Assigned at Not on file Legal Sex 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 Gender Identity Not on file Sexual Orientation [...] ORDERABLES Final Re sult Performing Organization Address [facility] de Phone Number INTERFACE SYSTEM Refer to clinic/hospital department * PLATELET COUNT (04/01/2005 6:30 AM CDT) PLATELETS 232 140 - 350 K/uL INTERFACE SYSTEM MPV 11.2 9.3 - 12.4 fL INTERFACE SYSTEM 04/01/2005 6:30 AM CDT Lianne Barnett MD HEMATOLOGY ORDERABLES Final R esult Performing Organization Address [facility] de Phone Number INTERFACE SYSTEM Refer [...] patients with mechanical heart valves or post [place]. Pediatric (12 years and under): 1.5 - [...]
--- OUTSIDE RECORDS SUMMARY | 2024-11-29 00:34 | XMS_ITS | Encounter Summary ---
Author Organization [facility] Address 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 Phone Number INTERFACE SYSTEM Refer to [...] patients with mechanical heart valves or post [place]. Pediatric (12 years and under): 1.5 - [...] HEMATOLOGY ORDERABLES Final Result Performing Organization Address [facility] Phone Number INTERFACE SYSTEM Refer to [...]
--- OUTSIDE RECORDS SUMMARY | 2024-11-29 00:34 | XMS_ITS | Clinical Summary ---
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
--- OUTSIDE RECORDS SUMMARY | 2024-11-29 00:35 | XMS_ITS | Data Portability ---
Author Organization [place] - [facility], Main Office Address [address] [place] [address] Care Team Providers Care Group Insurance Specialist Name Role Phone KIMMY FLORES Primary Care Provider KIMMY FLORES Referring Provider [phone] Assessment Encounter Date Assessment Date Assessment LastModified by Organization Details LastModified Time 02/17/2024 02/17/2024 The patient has recurrent trochanteric [...] osteoarthritis of the left knee joint with wbzf-ev-ahfv changes in the medial compartment. She also [...] difficulties or questions. Not available 06/22/2024 14:11:50 10/17/2024 10/17/2024 The patient has recurrent trochanteric bursitis type pain right hip. We talked about treatment options today I offer formal therapy she stated she would like to try that we will get her set up for formal physical therapy for trochanteric bursitis she also wanted to do a shot of cortisone therefore under sterile conditions I injected the patient's right hip trochanteric bursa in the office with 4 cc 0.5% bupivacaine and 20 mg of Kenalog. Patient tolerated the procedure well. I will see her back as needed we will see how she does with the above treatment she voiced understanding and agreed with the above plan she will call for any further problems difficulties or questions. Not available 10/17/2024 15:24:17 Plan of Treatment Reminders Order Date Submit Date Provider Last Modified By Organization Details Last Modified Time Details Appointments Any 5 2024 01:00P M TOMAS Irving Not available Not available Not available Any 2024 01:00P M TOMAS Irving Not available Not available Not available Any 2024 01:00P TOMAS Melchor Not available Not available Not available Lab None recorded. Referral physical therapist referral - Please contact pt to schedule apt for R hip. Thanks 2024 025 [email or web address] [facility] [place], [address], [place], [address], 11/08/2024 08:09:25 Procedures injection /aspirati on joint/bur sa (PROC) 2024 025 In-Office Order, Internal Use Only DO Not Attach Compendium DO Not Attach Compendium, Do Not Delete/merge, [id number] 10/17/2024 15:10:18 knee aspiratio n/injecti on (PROC) 2023 024 [email or web address] In-Office Order, Internal Use Only DO Not Attach Compendium DO Not Attach Compendium, Do Not Delete/merge, [id number] 06/22/2024 13:54:32 knee aspiratio n/injecti on (PROC) 2023 024 [email or web address] In-Office Order, Internal Use Only DO Not Attach Compendium DO Not Attach Compendium, Do Not Delete/merge, [id number] 06/15/2024 13:49:24 injection /aspirati on joint/bur sa (PROC) 2023 024 [email or web address] In-Office Order, Internal Use Only DO Not Attach Compendium DO Not Attach Compendium, Do Not Delete/merge, [id number] 06/08/2024 13:53:59 knee aspiratio n/injecti on (PROC) 2023 024 [email or web address] In-Office Order, Internal Use Only DO Not Attach Compendium DO Not Attach Compendium, Do Not Delete/merge, [id number] 06/08/2024 13:53:59 injection /aspirati on joint/bur sa (PROC) - in office procedure , administe red by provider 2023 024 [email or web address] In-Office Order, Internal Use Only DO Not Attach Compendium DO Not Attach Compendium, Do Not Delete/merge, [id number] 02/17/2024 13:54:38 Surgeries None recorded. Imaging XR, hip + pelvis, unilatera l, 2 or 3 view 2023 024 [facility] [place], [address], [place], [address], 06/08/2024 15:52:25 XR, knee 2023 024 [facility] [place], [address], [place], [address], 06/08/2024 15:52:25 Medication Orders bupivacai ne HCl 0.5 % (5 mg/mL) injection solution 2024 025 [email or web address] [id number], [address] [place], [address], 10/17/2024 15:42:51 Kenalog 10 mg/mL suspensio n for injection 2024 025 [id number], [address] [place], [address], 10/17/2024 15:42:51 ORTHOVISC 30 mg/2 mL intra-art icular syringe 2023 024 [id number], [address] [place], [address], 06/22/2024 14:55:29 ORTHOVISC 30 mg/2 mL intra-art icular syringe 2023 024 [id number], [address] [place], [address], 06/15/2024 14:03:40 bupivacai ne HCl 0.5 % (5 mg/mL) injection solution 2023 024 [id number], [address] [place], [address], 06/08/2024 15:52:25 Kenalog 10 mg/mL suspensio n for injection 2023 024 [id number], [address] [place], [address], 06/08/2024 15:52:25 ORTHOVISC 30 mg/2 mL intra-art icular syringe 2023 024 [id number], [address] [place], [address], 06/08/2024 15:52:25 Kenalog 10 mg/mL suspensio n for injection 2023 024 Not available 02/17/2024 15:42:14 Marcaine (PF) 0.5 % (5 mg/mL) injection solution 2023 024 Not available 02/17/2024 15:42:14 Patient TargetsNo targets recorded. Patient InstructionsNo instructions recorded. Reason for Referral Physical Therapist Referral for Trochanteric bursitis of right hip R hip Please contact pt to schedule apt for R hip. Thanks Referring Physician: Jose Meneses, Orthopedic Surgery, Encounter Date: 10/17/2024 Results Created Date Observation Date Name Description Value Unit Range Abnormal Flag Note LastModifiedBy Organization Detail LastModifiedTime 06/08/20 24 XR, hip + pelvi s, unila teral , 2 or 3 view No observ ation record ed. [facility] [place] [address], [place], [address], 06/08/2024 14:30:20 06/08/20 24 XR, knee No observ ation record ed. [facility] [place] [address], [place], [address], 06/08/2024 14:31:34 Result Notes None recorded. Problems Name Problem SNOMED Code Status Onset Date Resolution Date Notes Provider Name and Address Organization Details Recorded Time Spinal stenosis of lumbar region 70429620 Active 2021 Not Available [facility] 3 10:42:42 Low back pain 948201905 Active 2021 Not Available [facility] 3 10:42:43 Enthesopat hy of hip region 71847921 Active Not Available [facility] 3 10:42:43 Osteoarthr itis 195802382 Active Not Available [facility] 3 10:42:43 Brachial neuritis 03817721 Active Not Available [facility] 3 10:42:43 Neck pain 41847541 Active Not Available [facility] 3 10:42:43 Spinal stenosis in cervical region 12230453 Active Not Available [facility] 3 10:42:43 Pain in limb 80146124 Active Not Available [facility] 3 10:42:43 Pain of left knee joint 2294355253107 07 Active 2022 Shandra Dennis ATC L null, [place] [facility] 3 13:42:57 Osteoarthr itis of left knee joint 4525952841759 09 Active 2022 Shandra Dennis ATC L null, [place] [facility] 3 13:43:24 Pain in right hip joint 0321038193056 02 Active 2022 KAILEY Boyd, [place] [facility] 3 14:27:05 Trochanter ic bursitis of right hip 7282985141990 00 Active 2022 TOMAS Irving [address] [facility], [facility] [address], [place], [address] , [place] [facility] 14:54:10 Problem Notes None recorded. Procedures Surgical History Date Name Laterality Status Provider Name and Address Organization Details Recorded Time procedure on heart completed Shandra Dennis ATC L [place] [facility] 10/15/2022 14:17:21 Breast Surgery completed Not Available [facility] 10/07/2022 10:41:01 Eye Surgery completed Not Available [facility] 10/07/2022 10:41:01 Imaging Results Imaging Date Name Status LastModified by Organiz ation Details LastModified Time 06/08/2024 XR, hip + pelvis, unilateral , 2 or 3 view completed [facility] [place] [address], [place], [address], 06/08/2024 14:30:20 06/08/2024 XR, knee completed [facility] [place] [address] [facility] [address], [place], [address], 06/08/2024 14:31:34 Procedure Notes None recorded. Medical [...] % (5 mg/mL) injection solution Take 4 mg by injection route. 2024 active Not Available Not Available Not Avai [...] Kenalog 10 mg/mL suspension for injection Take 2 mg by injection route. 2024 active NDC: 0003- 0494- 20 Not Available Not Available Not Available omeprazole 20 mg capsule,del ayed release 20 MG ORALLY TWICE A DAY active Not Available Not Available No t Available Marcaine (PF) 0.5 % (5 mg/mL) injection solution Take 4 mL by injection route. 2023 active NDC:0 12946 1050, HM066 9, 01/07 Not Available Not [...] 20 mg by injection route. 11/[address] [facility] 94012 -064- 01 Not Available Not Available Not Available Supartz FX 10 mg/mL intra-artic ular syringe Injection s given in the office by the doctor 11/[address] [facility]: [address] -1 Not Available Not Available Not [...] Updated DateTime 02/17/2024 165.1 cm 28.3 kg/m2 75808.7 g SUSAN Dodd [facility] [employer] [facility] 02/17/2024 13:52:37 Date Recorded Body height Body mass index (BMI) Body weight Provider Name and Address Organization Details Last Updated DateTime 06/08/2024 165.1 cm 28.3 kg/m2 44301.7 g Judith Govea [facility] [employer] [facility] 06/08/2024 13:50:59 Date Recorded Body height Body mass index (BMI) Body weight Provider Name and Address Organization Details Last Updated DateTime 06/15/2024 165.1 cm 28.3 kg/m2 61202.7 g Judith Jeferson, [facility] [employer] [facility] [employer] [facility] 06/15/2024 13:46:05 Date Recorded Body height Body mass index (BMI) Body weight Provider Name and Address Organization Details Last Updated DateTime 06/22/2024 165.1 cm 28.3 kg/m2 69138.7 g Judith Jeferson, [facility] [employer] [facility] [employer] [facility] 06/22/2024 13:53:07 Date Recorded Body height Body mass index (BMI) Body weight Pain severity - 0-10 verbal numeric rating [Score] - Reported Provider Name and Address Organization Details Last Updated DateTime 10/17/2024 165.1 cm 28.3 kg/m2 37230.7 g Shabana Fuentes [place] [employer] [facility] [employer] [facility] 10/17/2024 15:08:56 Social History Question Answer Notes LastModified by Organizat ion Details LastModified Time Tobacco Smoking Status Never Smoker Judith Jeferson, DEEPA null, [place] [facility] 11/18/2023 14:10:15 What Is Your Level Of Alcohol Consumption? Occasional [id number] Information not available 10/07/2022 What Was The Date Of Your Most Recent Tobacco Screening? 08/21/2021 [id number] Information not available 10/07/2022 Sex: Unknown Functional Status None recorded. Mental Status None recorded. Family History Relationship Description Onset Age of this Age Resolved Age Notes LastModified by Organization Details LastModified Time Father Heart disease [id number] Not available 10/07/2022 10:41:03 Father Family history of malignant neoplasm [id number] Not available 10/07/2022 10:41:03 Mother Alzheimer's disease [email or web address] Not available 2023 14:10:00 Medical History Condition Response HEART ARRHYTHMIA Y ARTHRITIS Y CARDIAC ARRHYTHMIA Y CANCER: SPECIFY Y Gynecological HistoryNo gynecological history recorded. Obstetrics History GPAL:G 0 P 0 0 0 0 Past Encounters Encounter ID Performer Location Encounter Start Date Encounter Closed Date Diagnosis/Indication Diagnosis SNOMED-CT Code Diagnosis ICD10 Code Diagnosis Note [id number] [facility] [place] [address] [place] [address] 08/21/2021 00:00:00 08/21/2021 14:55:00 [id number] [facility] [place] [address] [place] [address] 08/28/2021 00:00:00 08/28/2021 14:19:11 [id number] [facility] [place] [address] [place] [address] 09/04/2021 00:00:00 09/04/2021 14:00:29 [id number] [facility] [place] [address] [place] [address] 09/09/2021 00:00:00 09/09/2021 14:41:20 [id number] [facility] [place] [address] [place] [address] 09/18/2021 00:00:00 09/18/2021 14:09:01 [id number] [facility] [place] [address] [place] [address] 03/24/2022 00:00:00 03/24/2022 15:01:37 [id number] [facility] [place] [address] [place] [address] 03/31/2022 00:00:00 03/31/2022 14:50:06 [id number] [facility] [place] [address] [place] [address] 04/07/2022 00:00:00 04/07/2022 16:20:17 [id number] [facility] [place] [address] [place] [address] 05/07/2022 00:00:00 05/07/2022 14:01:57 [id number] TOMAS Irving [facility] [place] [address] [place] [address] 10/08/2022 13:33:39 10/08/2022 15:07:31 Pain of left knee joint 6760054920 15922 M25.562 Spinal francis nosis of lumbar region 92740537 M48.062 Osteoarthr itis of left knee joint 1432241851 74769 M17.12 Low back pain 609963772 M54.50 [id number] TOMAS Irving [facility] [place] [address] [place] [address] 10/15/2022 13:54:56 10/15/2022 16:30:33 Pain of left knee joint 6506075833 15319 M25.562 Spinal francis nosis of lumbar region 56207913 M48.062 Osteoarthr itis of left knee joint 0862694812 56871 M17.12 Low back pain 126409640 M54.50 [id number] TOMAS Irving [facility] [place] [address] [place] [address] 10/22/2022 13:38:15 10/22/2022 15:15:23 Spinal stenosis of lumbar region 06803740 M48.062 Pain of le ft knee joint 5339938301 97703 M25.562 Low back pain 921632760 M54.50 Osteoarthr itis of left knee joint 9584821392 43862 M17.12 [id number] TOMAS Irving [facility] [place] [address] [place] [address] 04/27/2023 14:11:07 04/27/2023 14:33:31 Osteoarthritis of left knee joint 9829537118 35078 M17.12 [id number] TOMAS Irving [facility] [place] [address] [place] [address] 05/04/2023 14:21:28 05/04/2023 14:50:24 Osteoarthritis of left knee joint 7335680025 27761 M17.12 Pain in ri ght hip joint 1318991425 38546 M25.551 Trochanter ic bursitis of right hip 5101497321 96217 M70.61 [id number] TOMAS Irving [facility] [place] [address] [place] [address] 05/18/2023 14:32:58 05/18/2023 14:52:30 Trochanteric bursitis of right hip 4401118185 93439 M70.61 Pain in ri ght hip joint 8849047519 28203 M25.551 Osteoarthr itis of left knee joint 4857416224 79613 M17.12 [id number] TOMAS Irving [facility] [place] [address] [place] [address] 08/19/2023 13:45:22 08/19/2023 15:15:16 Trochanteric bursitis of right hip 1050840306 04649 M70.61 Pain in ri ght hip joint 8236716012 85328 M25.160 [id number] TOMAS Irving [facility] [place] [address] [place] [address] 11/18/2023 13:48:49 11/18/2023 14:41:27 Pain in right hip joint 3358701308 93735 M25.551 Trochanter ic bursitis of right hip 6866681790 49763 M70.61 Osteoarthr itis of left knee joint 7092780921 48497 M17.12 Pain of le ft knee joint 9166023981 97182 M25.340 [id number] TOMAS Irving [facility] [place] [address] [place] [address] 11/25/2023 13:48:06 11/25/2023 14:06:54 Osteoarthritis of left knee joint 9746545806 03162 M17.12 Pain of le ft knee joint 0891374292 79427 M25.562 Trochanter ic bursitis of right hip 3905412866 24944 M70.61 [id number] [facility] [place] [address] [place] [address] 12/07/2023 14:25:17 12/07/2023 14:52:43 Osteoarthritis of left knee joint 5644339060 24144 M17.12 Pain of le ft knee joint 4885093053 31306 M25.647 [id number] TOMAS Irving [facility] [place] [address] [place] [address] 02/17/2024 13:49:58 02/17/2024 14:23:45 Pain in right hip joint 0846841557 09547 M25.551 Trochanter ic bursitis of right hip 6762071068 05413 M70.61 [id number] TOMAS Irving [facility] [place] [address] [place] [address] 06/08/2024 13:47:24 06/08/2024 14:24:33 Pain in right hip joint 5075916387 42008 M25.551 Trochanter ic bursitis of right hip 0858547436 40596 M70.61 Osteoarthr itis of left knee joint 7462435933 78566 M17.12 Pain of le ft knee joint 1336516568 83448 M25.470 [id number] Jose Meneses, PA [facility] [place] [address] [place] [address] 06/15/2024 13:42:38 06/15/2024 13:58:44 Osteoarthritis of left knee joint 3485058614 46695 M17.12 Pain of le ft knee joint 6611859280 50513 M25.562 Trochanter ic bursitis of right hip 4939572967 08158 M70.61 [id number] TOMAS Irving [facility] [place] [address] [place] [address] 06/22/2024 13:50:37 06/22/2024 14:12:07 Osteoarthritis of left knee joint 1822582759 50417 M17.12 Pain of le ft knee joint 3589925518 62464 M25.165 [id number] TOMAS Irving [facility] [place] [address] [place] [address] 10/17/2024 15:05:30 10/17/2024 15:35:48 Trochanteric bursitis of right hip 0295418081 20553 M70.61 Pain in ri ght hip joint 5370411539 75026 M25.551 Health Concerns Section Related Observation LastModified by Organization Detai ls LastModified Time None Recorded Concern Status LastModified by Organization Details LastModified Time None Recorded Advance Directives Directive None Recorded Payers Encounter Date Sequence Insurance Name Policy Number Policy Mcfadden Covered Member ID Mcfadden Member ID Guarantor Name 02/17/2024 1 [place] Ruby Callahan [id number] Ruby Callahan 02/17/2024 2 [employer] - PLAN F (MEDICARE SUPPLEMENT) Ruby Callahan [id number] Ruby Callahan 06/08/2024 1 [place] Ruby Callahan [id number] 5 [id number] Ruby Callahan 06/08/2024 2 [employer] - PLAN F (MEDICARE SUPPLEMENT) Ruby Laytonclemente [id number] Ruby Navarro [employer]ell[employer] 06/15/2024 1 [place] Ruby Laytonclemente [id number] 5 [id number] 5 Ruby Laytonclemente 06/15/2024 2 [employer] - PLAN F (MEDICARE SUPPLEMENT) Ruby Navarro Robelluisclemente [id number] Ruby Navarro [employer] 06/22/2024 1 [place] Ruby Laytonclemente [id number] 5 [id number] 5 Ruby Navarro [employer] 06/22/2024 2 [employer] - PLAN F (MEDICARE SUPPLEMENT) Ruby Laytonclemente [id number] Ruby Navarro [employer] 10/17/2024 1 [place] Ruby Laytonclemente [id number] 5 [id number] 5 Ruby Laytonclemente 10/17/2024 2 [employer] - PLAN F (MEDICARE SUPPLEMENT) Ruby Laytonclemente [id number] Ruby Laytonclemente Notes Date Note Type Note Provider Name and Address Organization Details Recorded Time 02/17/2024 text/html Patient returns complaining of right [...] a scale 1-10 today. TOMAS Irving [address] [facility], [facility] [address], [place], [address], [place] [facility] 02/17/2024 14:10:33 06/08/2024 text/html the patient retu [...] changes in her history. TOMAS Irving [address], [facility] [address], [place], [address], [place] [facility] 06/08/2024 14:32:02 06/15/2024 text/html patient returns for [...] osteoarthritis of the left knee joint with nwlo-qx-tius changes in medial compartment and chronic right hip trochanteric bursitis both are improving with treatment so far. TOMAS Irving [address], [place], [address], [place] [employer] 06/15/2024 14:03:25 06/22/2024 text/html Patient returns for Orthovisc injection number 3 left knee. She is getting good relief from the 1st 2 rounds of injections and quite pleased so far. She has severe primary osteoarthritis of the left knee with jpdz-qt-bbsg changes in the medial compartment. Denies any problems today with the knee walking more comfortably. TOMAS Irving [address], [facility] [address], [place], [address], [employer] 06/22/2024 14:12:30 10/17/2024 text/html Patient returns with right lateral hip pain over the trochanteric region. She has had a shot of cortisone about 4 months ago. She states that she was doing well until she was in a recliner and a big dog jumped up on her and caused her to jump and bump her right hip on the arm of the chair. She since that time has had some aching pain consistent with her previous trochanteric bursitis. Shots of cortisone in the past have given her excellent relief she was doing very well until that incident couple of weeks ago. It has not calmed down much she states the pain is about an 8 on a scale 1-10 she would like to try another shot of cortisone again today. Denies any pain in the groin no other symptoms other than recurrent trochanteric bursitis type pain. Has no erythema effusion or signs of infection no weakness or other dysfunction. TOMAS Irving [address], [facility] [address], [place], [address], [employer] 10/17/2024 15:25:12 OBGyn Episode No OBEpisode recorded.
[2024-11-29 08:05] VITALS: BP 107/53; PULSE 58; RESP 16; TEMP 36.7; O2SAT 97; BMI 30.8
[2024-11-29] MEDS: LACTATED RINGERS 1,000 ML 30 ML IV CONT (08:45)
[2024-11-29] MEDS: ACETAMINOPHEN 500 MG TABLET 1000 MG PO (08:50)
--- NOTE | 2024-11-29 09:39 | WPDHPUPDATE1 ---
History and Physical Update Update Date/Time: 11/29/24 09:39 History and Physical has been reviewed, including an updated exam of the patient. There are NO changes in the patient's condition. Risks, benefits, and alternatives have been discussed and questions answered. Patient agrees to proceed with procedure.
[2024-11-29] MEDS: ceFAZolin 2 GM/D5W 50 ML 2 GM/50 ML BAG IVPB (09:45)
[2024-11-29] MEDS: LIDOCAINE 1% LOCAL INJ 10 ML VIAL INFILTRATE (09:59)
--- NOTE | 2024-11-29 10:20 | P.OP_ITS ---
Procedure Note - Detailed Date of Procedure 11/29/24 Pre-op Diagnosis Thickened endometrial stripe Post-op Diagnosis Same Procedure Performed Diagnostic hysteroscopy and curettage Surgeon Artemio Robles MD Anesthesia MAC and Local Indications thickened endoemetrial stripe Findings Stenotic os , atrophic uterine cavity, canalization upper cervix Description of Procedure After informed consent was obtained patient was taken to the operating room and adequate IV sedation was administered. Attention was turned to the vagina. Speculum was inserted. 10 cc of 1% lidocaine injected at cervicovaginal interface at 2,5,8,10 position. Single- tooth tenaculum placed on the anterior lip of the cervix. Cervix was stenotic. Os finders were used and able to open cervix. The cervix was dilated to 6 skinner dilator. The hysteroscope was inserted into the cavity. Cavity was atrophic. At the cervical canal it initially appeared to be an endocervical polyp which attempted to grasp with grasper and then the aveta instrument. Unable to grasp it. It looked like this was cervical tissue due to small canalization with the initial dilator at the upper cervix. No bleedding. A curettage was then performed with minimal tissue obtained consistent with atrophic cavity. The hysteroscope was removed. The single-tooth tenaculum was removed hemostasis was noted at the tenaculum site. Sponge count correct. The patient taken to recovery in stable condition. Estimated Blood Loss 5 Drains No Packing No Pathology Yes (minimal scant endometrial curettings) Complications No immediate complications Condition Stable Disposition Same day [facility] Billing Surgery - Charge Forward: Surgery Billing
[2024-11-29 10:26] VITALS: BP 89/34; PULSE 60; RESP 16; O2SAT 95
[2024-11-29 10:40] VITALS: BP 108/49; PULSE 57; RESP 20
[2024-11-29 10:55] VITALS: BP 97/65; PULSE 62; RESP 20
[2024-11-29 11:10] VITALS: BP 120/90; PULSE 62; RESP 20
[2024-11-29 11:40] VITALS: BP 125/88; PULSE 60; RESP 20
== END 2024-11-29 11:46 | disposition home or self-care (01) ==
PROVIDERS: PCP Family Medicine Adolescent Medicine; Visit Provider Obstetrics & Gynecology
PROC: 0U5B8ZZ Destruction of Endometrium, Via Natural or Artificial Opening Endoscopic (ICD-10-PCS; CPT 58563; principal; 2024-11-29 10:00)
DX: R93.89 Abnormal findings on diagnostic imaging of other specified body structures (principal); N88.2 Stricture and stenosis of cervix uteri; I49.9 Cardiac arrhythmia, unspecified; E66.9 Obesity, unspecified; Z68.30 Body mass index [BMI] 30.0-30.9, adult; Z91.89 Other specified personal risk factors, not elsewhere classified; Z98.890 Other specified postprocedural states; Z87.19 Personal history of other diseases of the digestive system; Z85.3 Personal history of malignant neoplasm of breast; Z83.719 Family history of colon polyps, unspecified; Z80.8 Family history of malignant neoplasm of other organs or systems; Z80.3 Family history of malignant neoplasm of breast; Z82.49 Family history of ischemic heart disease and other diseases of the circulatory system
CPT/HCPCS: 58555; 88305; A9270; J0690; J2003; J2405; J2704; J3010; J7120

== ENCOUNTER 2024-12-28 11:58 | Outpatient (CLI) | payer MEDICARE, SELFPAY ==
--- OUTSIDE RECORDS SUMMARY | 2024-12-28 11:29 | XMS_ITS | Encounter Summary ---
Author Organization [facility] Address 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 Lianne Barnett MD [address] [place] [address] PAROX VENTRIC TACHYCARD (CMS/HCC) (Primary Dx) Social History Tobacco Use Types Packs/Day Years Used Date Smoking Tobacco: Never Assessed Comments Unknown Sex and Gender Information Value Date Recorded Sex Assigned at Not on file 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 Gender Identity Not on file Sexual Orientation [...] ORDERABLES Final Re sult Performing Organization Address City/[facility] de Phone Number INTERFACE SYSTEM Refer to clinic/hospital department * PLATELET COUNT (04/01/2005 6:30 AM CDT) PLATELETS 232 140 - 350 K/uL INTERFACE SYSTEM MPV 11.2 9.3 - 12.4 fL INTERFACE SYSTEM 04/01/2005 6:30 AM CDT Lianne Barnett MD HEMATOLOGY ORDERABLES Final R esult Performing Organization Address [facility] de Phone Number INTERFACE SYSTEM Refer [...] patients with mechanical heart valves or post [place]. Pediatric (12 years and under): 1.5 - [...]
--- OUTSIDE RECORDS SUMMARY | 2024-12-28 11:30 | XMS_ITS | Clinical Summary ---
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
--- OUTSIDE RECORDS SUMMARY | 2024-12-28 11:30 | XMS_ITS | Data Portability ---
Author Organization [place] - [facility], Main Office Address [address] [place] [address] Care Team Providers Care Information Services Manager Name Role Phone KIMMY FLORES Primary Care Provider KIMMY FLORES Referring Provider Assessment Encounter Date Assessment Date Assessment LastModified by Organization Details LastModified Time 06/08/2024 06/08/2024 The patient has severe primary osteoarthritis of the left knee joint with zdoh-xv-aaoh changes in the medial compartment. She also [...] difficulties or questions. Not available 10/17/2024 15:24:17 12/21/2024 12/21/2024 The patient has severe primary osteoarthritis left knee joint. At her request under sterile conditions I injected the patient's left knee joint in the office today with Orthovisc injection number 1. I will see her back next week for the 2nd injection left knee. As far as her right hip goes she has gotten good relief from the cortisone injection and physical therapy she is quite pleased with the results from that. She has just finished up therapy she is going to continue those exercises on her own at home. We will follow up for hip as needed. She voiced understanding and agreed with the above plan she will call for any further problems difficulties or questions. Not available 12/21/2024 14:49:06 Plan of Treatment Reminders Order Date Submit Date Provider Last Modified By Organization Details Last Modified Time Details Appointments Any 2024 01:00P TOMAS Melchor Not available Not available Not available Any 2024 01:00P TOMAS Melchor Not available Not available Not available Lab None recorded. Referral physical therapist referral - Please contact pt to schedule apt for R hip. Thanks 2024 025 [email or web address] [facility] [place] [facility], [address], [place], [address], 12/22/2024 11:50:57 Procedures knee aspiratio n/injecti on (PROC) 2024 025 [email or web address] In-Office Order, Internal Use Only DO Not Attach Compendium DO Not Attach Compendium, Do Not Delete/merge, [id number] 12/21/2024 14:16:07 injection /aspirati on joint/bur sa (PROC) 2024 025 [email or web address] In-Office Order, Internal Use Only DO Not Attach Compendium DO Not Attach Compendium, Do Not Delete/merge, [id number] 10/17/2024 15:10:18 knee aspiratio n/injecti on (PROC) 2023 024 [email or web address] In-Office Order, Internal Use Only DO Not Attach Compendium DO Not Attach Compendium, Do Not Delete/merge, [id number] 06/22/2024 13:54:32 knee aspiratio n/injecti on (PROC) 2023 024 [email or web address] In-Office Order, Internal Use Only DO Not Attach Compendium DO Not Attach Compendium, Do Not Delete/merge, [id number] 06/15/2024 13:49:24 injection /aspirati on joint/bur sa (PROC) 2023 024 [email or web address] In-Office Order, Internal Use Only DO Not Attach Compendium DO Not Attach Compendium, Do Not Delete/merge, [id number] 06/08/2024 13:53:59 knee aspiratio n/injecti on (PROC) 2023 024 [email or web address] In-Office Order, Internal Use Only DO Not Attach Compendium DO Not Attach Compendium, Do Not Delete/merge, [id number] 06/08/2024 13:53:59 Surgeries None recorded. Imaging XR, hip + pelvis, unilatera l, 2 or 3 view 2023 024 [facility] [place], [address], [place], [address], 06/08/2024 15:52:25 XR, knee 2023 024 [facility] [place], [address], [place], [address], 06/08/2024 15:52:25 Medication Orders ORTHOVISC 30 mg/2 mL intra-art icular syringe 2024 025 [id number], [address] [place], [address], 12/21/2024 14:50:15 bupivacai ne HCl 0.5 % (5 mg/mL) injection solution 2024 025 [email or web address] [id number], [address] [place], [address], 12/21/2024 14:04:58 Kenalog 10 mg/mL suspensio n for injection 2024 025 [email or web address] [id number], [address] [place], [address], 12/21/2024 14:05:21 ORTHOVISC 30 mg/2 mL intra-art icular syringe 2023 024 [email or web address] [id number], [address] [place], [address], 12/21/2024 14:05:53 ORTHOVISC 30 mg/2 mL intra-art icular syringe 2023 024 [email or web address] [id number], [address] [place], [address], 12/21/2024 14:05:53 bupivacai ne HCl 0.5 % (5 mg/mL) injection solution 2023 024 [email or web address] [id number], [address] [place], [address], 12/21/2024 14:04:58 Kenalog 10 mg/mL suspensio n for injection 2023 024 [email or web address] [id number], [address] [place], [address], 12/21/2024 14:05:21 ORTHOVISC 30 mg/2 mL intra-art icular syringe 2023 024 [email or web address] [id number], [address] [place], [address], 12/21/2024 14:05:53 Patient TargetsNo targets recorded. Patient InstructionsNo instructions [...] 3 view No observ ation record ed. [facility] [place] [address], [place], [address], 06/08/2024 14:30:20 06/08/20 24 XR, knee No observ ation record ed. [facility] [place] [address], [place], [address], 06/08/2024 14:31:34 Result Notes None recorded. Problems Name Problem SNOMED Code Status Onset Date Resolution Date Notes Provider Name and Address Organization Details Recorded Time Spinal stenosis of lumbar region 63109280 Active 2021 Not Available [facility] 3 10:42:42 Low back pain 232969261 Active 2021 Not Available [facility] 3 10:42:43 Enthesopat hy of hip region 44259998 Active Not Available [facility] 3 10:42:43 Osteoarthr itis 894970583 Active Not Available [facility] 3 10:42:43 Brachial neuritis 91572329 Active Not Available [facility] 3 10:42:43 Neck pain 79552419 Active Not Available [facility] 3 10:42:43 Spinal stenosis in cervical region 86368315 Active Not Available [facility] 3 10:42:43 Pain in limb 26784220 Active Not Available [facility] 3 10:42:43 Pain of left knee joint 6097284411776 07 Active 2022 Shandra Dennis ATC L null, [place] [facility] 3 13:42:57 Osteoarthr itis of left knee joint 4549813896612 09 Active 2022 Shandra Dennis ATC L null, [facility] - [facility] 3 13:43:24 Pain of right hip joint 0249040999954 02 Active 2022 KAILEY Boyd, [facility] - [facility] 3 14:27:05 Trochanter ic bursitis of right hip 0102760470972 00 Active 2022 TOMAS Irving [address] [facility], [facility] [address], [place], [address] , [facility] - [facility] 5 14:49:15 Problem Notes None recorded. Procedures Surgical History Date Name Laterality Status Provider Name and Address Organization Details Recorded Time procedure on heart completed Shandra Dennis, ATC L [place] [facility] 10/15/2022 14:17:21 Breast Surgery completed Not Available [facility] 10/07/2022 10:41:01 Eye Surgery completed Not Available [facility] 10/07/2022 10:41:01 Imaging Results Imaging Date Name Status LastModified by Organiz ation Details LastModified Time 06/08/2024 XR, hip + pelvis, unilateral , 2 or 3 view completed [facility] [place] [address], [place], [address], 06/08/2024 14:30:20 06/08/2024 XR, knee completed [facility] [place] [address], [place], [address], 06/08/2024 14:31:34 Procedure Notes None recorded. Medical Equipment None Reported. Allergies No known drug allergies Medications Name Sig Start Date Stop Date Status Note LastModified by Organization Details LastModified Time amoxicillin 500 mg capsule 1000 MG ORALLY EVERY 12 HOURS 12/21 completed Not Available Not Available Not Available anastrozole 1 mg tablet 10/11 completed [...] tablet 500 MG ORALLY EVERY 12 HOURS 12/21 completed Not Available Not Available Not Available bupivacaine HCl 0.5 % (5 mg/mL) injection solution Take 4 mg by injection route. 12/21 completed Not Available Not Available Not Available metronidazo le 250 mg tablet TAKE 1 TABLET BY MOUTH EVERY 8 HOURS UNTIL ALL ARE TAKEN 12/21 completed Not Available Not Available Not Available prednisone 10 mg tablets in a dose pack Take 1 tab by mouth, 3 times a day for 3 daysTake 1 tab by mouth 2 times a day for 2 daysTake 1 tab by mouth once a day for 1 day 11/17 completed Not Available Not Available Not Available Kenalog 10 mg/mL suspension for injection Take 2 mg by injection route. 12/21 completed NDC: 0003- 0494- 20 Not Available Not Available Not Available omeprazole 20 mg capsule,del ayed release 20 MG ORALLY TWICE A DAY active Not Available Not Available No t Available Marcaine (PF) 0.5 % (5 mg/mL) injection solution Take 4 mL by injection route. 12/21 completed NDC:0 88971 1050, HM066 9, 01/07 Not Available Not Available Not Available ORTHOVISC 30 mg/2 mL intra-artic ular syringe Inject 2 mL every week by intra-art icular route. 2024 active Not Available Not Available Not Avai lable nitrofurant oin monohydrate /macrocryst als 100 mg capsule TAKE 1 CAPSULE BY MOUTH TWICE A DAY FOR 7 DAYS WITH MEAL/FOOD 12/21 completed Not Available Not Available Not Available Euflexxa 10 mg/mL (mw 2.4-3.6 million) [...] Available Not Available Xifaxan 550 mg tablet 12/21 completed Not Available Not Available Not Available sodium,pota ssium,mag sulfates 17.5 gram-3.13 gram-1.6 gram oral soln TAKE DIRECTED PER WRITTEN INSTRUCTI ONS GIVEN TO YOU 12/21 completed Not Available Not Available Not Available ropivacaine (PF) 5 mg/mL (0.5 %) injection solution Take 20 mg by injection route. 11/17 completed [facility] 31741 -064- 01 Not Available Not Available Not Available Supartz FX 10 mg/mL intra-artic ular syringe Injection s given in the office by the doctor 11/17 completed [facility]: [address] -1 Not Available Not Available Not [...] Updated DateTime 06/08/2024 165.1 cm 28.3 kg/m2 74356.7 g Judith Govea CNA [facility] [employer] 06/08/2024 13:50:59 Date Recorded Body height Body mass index (BMI) Body weight Provider Name and Address Organization Details Last Updated DateTime 06/15/2024 165.1 cm 28.3 kg/m2 27964.7 g Judith Govea CNA [employer] [facility] [employer] 06/15/2024 13:46:05 Date Recorded Body height Body mass index (BMI) Body weight Provider Name and Address Organization Details Last Updated DateTime 06/22/2024 165.1 cm 28.3 kg/m2 03056.7 g Judith Govea CNA [place] [facility] [employer] 06/22/2024 13:53:07 Date Recorded Body height Body mass index (BMI) Body weight Provider Name and Address Organization Details Last Updated DateTime 10/17/2024 165.1 cm 28.3 kg/m2 45630.7 g KAILEY Garcia [employer] 10/17/2024 15:08:54 Date Recorded Body height Provider Name an d Address Organization Details Last Updated DateTime 12/21/2024 165.1 cm Judith Govea CNA [place] [employer] [facility] [employer] 12/21/2024 14:04:44 Social History Question Answer Notes LastModified by Organizat ion Details LastModified Time Tobacco Smoking Status Never Smoker DEEPA Jasso [place] [facility] 11/18/2023 14:10:15 What Was The Date Of Your Most Recent Tobacco Screening? 08/21/2021 [id number] Information not available 10/07/2022 Sex: Unknown Functional Status Question Answer Note LastModified by Organizat ion Details LastModified Time What is your level of alcohol consumption? Occasional [id number] Information not available 10/07/2022 Mental Status None recorded. Family History Relationship Description Onset Age of this Age Resolved Age Notes LastModified by Organization Details LastModified Time Father Heart disease [id number] Not available 10/07/2022 10:41:03 Father Family history of malignant neoplasm [id number] Not available 10/07/2022 10:41:03 Mother Alzheimer's disease [email or web address] Not available 2023 14:10:00 Medical History Condition Response ARTHRITIS Y CARDIAC ARRHYTHMIA Y CANCER: SPECIFY Y HEART ARRHYTHMIA Y Gynecological HistoryNo gynecological history recorded. Obstetrics History GPAL:G 0 P 0 0 0 0 Past Encounters Encounter ID Performer Location Encounter Start Date Encounter Closed Date Diagnosis/Indication Diagnosis SNOMED-CT Code Diagnosis ICD10 Code Diagnosis Note [id number] Danyel Quintana MD [facility] [place] [address] [place] [address] 08/21/2021 00:00:00 08/21/2021 14:55:00 [id number] Danyel Quintana MD [facility] [place] [address] [place] [address] 08/28/2021 00:00:00 08/28/2021 14:19:11 [id number] Danyel Quintana MD [facility] [place] [address] [place] [address] 09/04/2021 00:00:00 09/04/2021 14:00:29 [id number] Danyel Quintana MD [facility] [place] [address] [place] [address] 09/09/2021 00:00:00 09/09/2021 14:41:20 [id number] Danyel Quintana MD [facility] [place] [address] [place] [address] 09/18/2021 00:00:00 09/18/2021 14:09:01 [id number] Danyel Quintana MD [facility] [place] [address] [place] [address] 03/24/2022 00:00:00 03/24/2022 15:01:37 [id number] Danyel Quintana MD [facility] [place] [address] [place] [address] 03/31/2022 00:00:00 03/31/2022 14:50:06 [id number] Danyel Quintana MD [facility] [place] [address] [place] [address] 04/07/2022 00:00:00 04/07/2022 16:20:17 [id number] Danyel Quintana MD [facility] [place] [address] [place] [address] 05/07/2022 00:00:00 05/07/2022 14:01:57 [id number] TOMAS Irving [facility] [place] [address] [place] [address] 10/08/2022 13:33:39 10/08/2022 15:07:31 Pain of left knee joint 8504233180 07266 M25.562 Spinal francis nosis of lumbar region 01363857 M48.062 Osteoarthr itis of left knee joint 7987330935 76859 M17.12 Low back pain 814536735 M54.50 [id number] TOMAS Irving [facility] [place] [address] [place] [address] 10/15/2022 13:54:56 10/15/2022 16:30:33 Pain of left knee joint 2604714234 20516 M25.562 Spinal francis nosis of lumbar region 53682772 M48.062 Osteoarthr itis of left knee joint 2553865267 32042 M17.12 Low back pain 816751018 M54.50 [id number] [address] MD [facility] [place] [address] [place] [address] 10/22/2022 13:38:15 10/22/2022 15:15:23 Spinal stenosis of lumbar region 35151586 M48.062 Pain of le ft knee joint 7779264139 98276 M25.562 Low back pain 172937974 M54.50 Osteoarthr itis of left knee joint 7272620243 67444 M17.12 [id number] Danyel Quintana MD [facility] [place] [address] [place] [address] 04/27/2023 14:11:07 04/27/2023 14:33:31 Osteoarthritis of left knee joint 5090551917 95596 M17.12 [id number] Qamar Adler MD [facility] [place] [address] [place] [address] 05/04/2023 14:21:28 05/04/2023 14:50:24 Osteoarthritis of left knee joint 0863768724 73937 M17.12 Pain of ri ght hip joint 6575533517 23133 M25.551 Trochanter ic bursitis of right hip 6441133075 08468 M70.61 [id number] Qamar Adler MD [facility] [place] [address] [place] [address] 05/18/2023 14:32:58 05/18/2023 14:52:30 Trochanteric bursitis of right hip 5651658372 98559 M70.61 Pain of ri ght hip joint 7413718450 37471 M25.551 Osteoarthr itis of left knee joint 8688033093 83354 M17.12 [id number] Qamar Adler MD [facility] [place] [address] [place] [address] 08/19/2023 13:45:22 08/19/2023 15:15:16 Trochanteric bursitis of right hip 4091805786 60535 M70.61 Pain of ri ght hip joint 0664436103 73212 M25.714 [id number] Kike Urrutia MD [facility] [place] [address] [place] [address] 11/18/2023 13:48:49 11/18/2023 14:41:27 Pain of right hip joint 6416153810 32673 M25.551 Trochanter ic bursitis of right hip 5330519902 19299 M70.61 Osteoarthr itis of left knee joint 7511632065 37729 M17.12 Pain of le ft knee joint 1285874144 47512 M25.598 [id number] Kike Urrutia MD [facility] [place] [address] [place] [address] 11/25/2023 13:48:06 11/25/2023 14:06:54 Osteoarthritis of left knee joint 0270993082 78825 M17.12 Pain of le ft knee joint 5386568425 41135 M25.562 Trochanter ic bursitis of right hip 2682711064 07965 M70.61 [id number] Kike Urrutia MD [facility] [place] [address] [place] [address] 12/07/2023 14:25:17 12/07/2023 14:52:43 Osteoarthritis of left knee joint 1106919252 32670 M17.12 Pain of le ft knee joint 8962676621 86275 M25.556 [id number] Kike Urrutia MD [facility] [place] [address] [place] [address] 02/17/2024 13:49:58 02/17/2024 14:23:45 Pain of right hip joint 9464027931 75695 M25.551 Trochanter ic bursitis of right hip 1051744522 02350 M70.61 [id number] Kike Urrutia MD [facility] [place] [address] [place] [address] 06/08/2024 13:47:24 06/08/2024 14:24:33 Pain of right hip joint 0444505956 36529 M25.551 Trochanter ic bursitis of right hip 1809720746 30464 M70.61 Osteoarthr itis of left knee joint 0647478042 57102 M17.12 Pain of le ft knee joint 7089597255 41438 M25.550 [id number] Kike Urrutia MD [facility] [place] [address] [place] [address] 06/15/2024 13:42:38 06/15/2024 13:58:44 Osteoarthritis of left knee joint 0012684479 52450 M17.12 Pain of le ft knee joint 7502891005 24381 M25.562 Trochanter ic bursitis of right hip 1197163551 99688 M70.61 [id number] Kike Urrutia MD [facility] [place] [address] [place] [address] 06/22/2024 13:50:37 06/22/2024 14:12:07 Osteoarthritis of left knee joint 6835745302 61153 M17.12 Pain of le ft knee joint 6746133293 49834 M25.607 [id number] Kike Urrutia MD [facility] [place] [address] [place] [address] 10/17/2024 15:05:30 10/17/2024 15:35:48 Trochanteric bursitis of right hip 5611246091 46406 M70.61 Pain of ri ght hip joint 7302223277 19388 M25.150 [id number] Kike Urrutia MD [facility] [place] [address] [place] [address] 12/21/2024 13:55:46 12/21/2024 14:39:36 Osteoarthritis of left knee joint 6109081927 57675 M17.12 Pain of le ft knee joint 2301329267 38058 M25.562 Trochanter ic bursitis of right hip 4241606703 56830 M70.61 Health Concerns Section Related Observation LastModified by Organization Detai ls LastModified Time None Recorded Concern Status LastModified by Organization Details LastModified Time None Recorded Advance Directives Directive None Recorded Payers Encounter Date Sequence Insurance Name Policy Number Policy Mcfadden Covered Member ID Mcfadden Member ID Guarantor Name 06/08/2024 1 [place] Ruby Callahan [id number] 5 [id number] Ruby Melanie Qiuwicz 06/08/2024 2 [employer] - PLAN F (MEDICARE SUPPLEMENT) Ruby Melanie Qiuwicz [id number] Ruby Melanie Qiuwicz 06/15/2024 1 [place] Ruby Melanie Laytoniewicz [id number] 5 [id number] 5 Ruby Melanie Qiuwicz 06/15/2024 2 [employer] - PLAN F (MEDICARE SUPPLEMENT) Ruby Melanie Qiuwicz [id number] Ruby Melanie Uptoncz 06/22/2024 1 [place] Ruby Melanie Laytoniewicz [id number] 5 [id number] 5 Ruby Melanie Laytoniewicz 06/22/2024 2 [employer] - PLAN F (MEDICARE SUPPLEMENT) Ruby Melanie Qiuwicz [id number] Ruby Melanie Qiuwicz 10/17/2024 1 [place] Ruby Melanie Laytoniewicz [id number] 5 [id number] 5 Ruby Melanie Laytoniewicz 10/17/2024 2 [employer] - PLAN F (MEDICARE SUPPLEMENT) Ruby Melanie Laytoniewicz [id number] Ruby Melanie Qiuwicz 12/21/2024 1 [place] Ruby Melanie Laytoniewicz [id number] 5 [id number] 5 Ruby Melanie Laytoniewicz 12/21/2024 2 [employer] - PLAN F (MEDICARE SUPPLEMENT) Ruby Qiuwicz [id number] Ruby Callahan Notes Date Note Type Note Provider Name and Address Organization Details Recorded Time 06/08/2024 text/html the patient retu rns for [...] in her history. TOMAS Irving [address], [place], [address], [employer] 06/08/2024 14:32:02 06/15/2024 text/html patient returns for [...] osteoarthritis of the left knee joint with bjry-ok-lcdw changes in medial compartment and chronic right hip trochanteric bursitis both are improving with treatment so far. TOMAS Irving [address], [place], [address], [employer] 06/15/2024 14:03:25 06/22/2024 text/html Patient returns for Orthovisc injection number 3 left knee. She is getting good relief from the 1st 2 rounds of injections and quite pleased so far. She has severe primary osteoarthritis of the left knee with gvpg-rm-vlfg changes in the medial compartment. Denies any problems today with the knee walking more comfortably. TOMAS Irving [address] [facility], [place], [address], [employer] 06/22/2024 14:12:30 10/17/2024 text/html Patient returns with [...] weakness or other dysfunction. TOMAS Irving [address] [facility], [facility] [address], [place], [address], [employer] 10/17/2024 15:25:12 12/21/2024 text/html The patient retu rns for Orthovisc injection number 1 left knee. She has severe primary osteoarthritis left knee joint with yglk-bx-nrda changes in the medial compartment. Gel shots worked very well for her 6 months ago she would like to repeat those again today. Denies any new problems with her knee she is not interested in total knee arthroplasty. She gets by with conservative measures. States lately the pain is about a 6 on a scale of 1-10. The patient's previous x-rays were reviewed with her in detail today.The patient also recently had her right hip injected for trochanteric bursitis we talked about that today as well. She states this is doing much better. She has had chronic issues with it, she finally decided to go to physical therapy she states the last cortisone shot a couple of months ago as well as the physical therapy really helping quite a bit she is much more comfortable here and not having that pain and tenderness over the right hip trochanteric bursa. A new past medical history sheet was reviewed and signed on the intake sheet of today's date drug allergies current medications family social history previous surgical history 10 point review of systems was reviewed and discussed in detail today with the patient. TOMAS Irving [address] [facility] [address], [place], [address], [place] [facility] 12/21/2024 14:50:13 OBGyn Episode No OBEpisode recorded.
--- OUTSIDE RECORDS SUMMARY | 2024-12-28 11:30 | XMS_ITS | Encounter Summary ---
Author Organization [employer] Address 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 Pediatric (12 years and under): 1.5 - [...] HEMATOLOGY ORDERABLES Final Result Performing Organization Address [facility] Phone Number INTERFACE SYSTEM Refer to [...]
--- OUTSIDE RECORDS SUMMARY | 2024-12-28 12:00 | XMS_ITS | Encounter Summary ---
Author Organization [employer] Address 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 Lianne Barnett MD [address] [place] [address] PAROX VENTRIC TACHYCARD (CMS/HCC) (Primary Dx) Social History Tobacco Use Types Packs/Day Years Used Date Smoking Tobacco: Never Assessed Comments Unknown Sex and Gender Information Value Date Recorded Sex Assigned at Not on file 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 Gender Identity Not on file Sexual [...] ORDERABLES Final Re sult Performing Organization Address [facility] de Phone Number INTERFACE SYSTEM Refer to clinic/hospital department * PLATELET COUNT (04/01/2005 6:30 AM CDT) PLATELETS 232 140 - 350 K/uL INTERFACE SYSTEM MPV 11.2 9.3 - 12.4 fL INTERFACE SYSTEM 04/01/2005 6:30 AM CDT Lianne Barnett MD HEMATOLOGY ORDERABLES Final R esult Performing Organization Address [facility] de Phone Number INTERFACE [...]
--- OUTSIDE RECORDS SUMMARY | 2024-12-28 12:00 | XMS_ITS | Clinical Summary ---
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
--- OUTSIDE RECORDS SUMMARY | 2024-12-28 12:00 | XMS_ITS | Encounter Summary ---
Author Organization [employer] Address 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 Phone Number INTERFACE SYSTEM Refer to clinic/hospital [...] patients with mechanical heart valves or post [place]. Pediatric (12 years and under): 1.5 - [...] HEMATOLOGY ORDERABLES Final Result Performing Organization Address [facility] Phone Number INTERFACE SYSTEM Refer to clinic/hospital [...]
[2024-12-28 12:26] LABS: Hematocrit 40.8 % (37.0-47.0); Hemoglobin 13.1 g/dL (12.0-15.0); Mean Corpuscular HGB Conc 32.1 g/dl (32-36); Mean Platelet Volume 11.3 fl (7.4-10.4); Platelet Count Result 208 k/mm3 (150-375); Red Blood Count 3.85 M/mm3 (4.2-5.4); Red Cell Distribution Width 12.2 % (11.5-14.5); White Blood Count 5.1 K/mm3 (4.5-10.0)
[2024-12-28 12:41] LABS: Cholesterol 185 mg/dL (0-200); HDL Direct 68 mg/dL; Triglycerides 137 mg/dL (<150)
[2024-12-28 12:42] LABS: Alanine Aminotransferase 21 U/L (6-35); Albumin Level 4.1 g/dL (3.5-5.1); Alkaline Phosphatase 64 U/L (38-126); Anion Gap 7 mmol/L (4-12); Aspartate Amino Transferase 39 U/L (14-36); Bilirubin,Total 0.8 mg/dL (0.2-1.3); Blood Urea Nitrogen 10 mg/dL (7-17); Carbon Dioxide 28 mmol/L (22-30); Chloride 104 mmol/L (98-107); Estimated Glomerular Filt Rate > 60; Glucose 92 mg/dL (65-110); Potassium 4.3 mmol/L (3.4-5.0); Sodium 139 mmol/L (137-145)
[2024-12-28 12:51] LABS: LDL Cholesterol Direct 80 mg/dL
== END 2024-12-28 11:59 | disposition home or self-care (01) ==
PROVIDERS: PCP Family Medicine Adolescent Medicine; Visit Provider Family Medicine Adolescent Medicine
DX: Z13.220 Encounter for screening for lipoid disorders (principal); R53.83 Other fatigue; Z79.899 Other long term (current) drug therapy
CPT/HCPCS: 36415; 80053; 80061; 84443; 85027

== ENCOUNTER 2025-03-06 14:39 | Outpatient (CLI) | payer MEDICARE, SELFPAY ==
--- NOTE | ~2025-03-06 | US_ITS ---
Pelvic ultrasound. Clinical History: Ovarian cyst Technique: Realtime transabdominal and transvaginal scanning of the pelvis was performed. Color flow Doppler and Doppler spectral analysis were performed. Findings: The uterus is anteverted, and measures 3.6 x 2.5 x 3.2 cm.. The endometrial stripe has a t hickness of 3 mm, with tiny amount of fluid in the endometrial cavity. No focal mass is identified. The right ovary is not visualized. No significant right ovarian or adnexal mass is seen. The left ovary measures 3.5 x 2.8 x 2.4 cm. Simple left ovarian cyst measures 3.[address] ter. There is no evidence of free fluid in the cul de sac. Impression: 3.2 cm simple left ovarian cyst. Reviewed, dictated and finalized at [facility]. Impression: 3.2 cm simple left ovarian cyst.
== END 2025-03-06 14:40 | disposition home or self-care (01) ==
LOC: MICIMG 14:40
PROVIDERS: PCP Family Medicine Adolescent Medicine; Visit Provider Obstetrics & Gynecology
DX: N83.292 Other ovarian cyst, left side (principal)
CPT/HCPCS: 76830; 76856

== ENCOUNTER 2025-03-06 15:15 | Outpatient (CLI) | payer MEDICARE, SELFPAY ==
--- OUTSIDE RECORDS SUMMARY | 2025-03-06 15:21 | XMS_ITS | Encounter Summary ---
Author Organization [email or web address] Address 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 de Phone Number INTERFACE SYSTEM Refer to clinic/hospital department * PLATELET COUNT (04/01/2005 6:30 AM CDT) PLATELETS 232 140 - 350 K/uL INTERFACE SYSTEM MPV 11.2 9.3 - 12.4 fL INTERFACE SYSTEM 04/01/2005 6:30 AM CDT Lianne Barnett MD HEMATOLOGY ORDERABLES Final R esult Performing Organization Address [facility] de Phone Number INTERFACE SYSTEM Refer [...] patients with mechanical heart valves or post [place]. Pediatric (12 years and under): 1.5 - [...]
--- OUTSIDE RECORDS SUMMARY | 2025-03-06 15:21 | XMS_ITS | Encounter Summary ---
Author Organization [employer] Address 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 Phone Number INTERFACE SYSTEM Refer to clinic/hospital [...] mechanical heart valves or post [place]. Pediatric (12 years and under): 1.5 - [...] HEMATOLOGY ORDERABLES Final Result Performing Organization Address [facility] Phone Number INTERFACE SYSTEM Refer to clinic/hospital [...]
--- OUTSIDE RECORDS SUMMARY | 2025-03-06 15:21 | XMS_ITS | Data Portability ---
Author Organization [facility], Main Office Address [address] [place] [address] Care Team Providers Care Club Car Attendant Name Role Phone KIMMY FLORES Primary Care Provider KIMMY FLORES Referring Provider Assessment Encounter Date Assessment Date Assessment LastModified by Organization Details LastModified Time 06/22/2024 06/22/2024 The patient has severe primary [...] difficulties or questions. Not available 12/21/2024 14:49:06 01/04/2025 01/04/2025 The patient has severe primary osteoarthritis left knee joint as described. Under sterile conditions I injected the patient's left knee joint in the office with Orthovisc injection number 2. I will see her back next week for the 3rd injection left knee. She voiced understanding and agree with the above plan she will call for any further problems difficulties or questions. Not available 01/04/2025 14:12:57 01/11/2025 01/11/2025 The patient has severe primary osteoarthritis left knee joint. At her request under sterile conditions I injected the patient's left knee joint in the office today with Orthovisc injection number 3. The patient tolerated the procedure well. She is doing well after the 1st 2 rounds of injections she typically gets good relief from gel. We will see her back as needed we can do this again in 6 months if necessary versus cortisone in between if necessary. She voiced understanding and agreed with the above plan she will call for any further problems difficulties or questions. Not available 01/11/2025 15:07:59 Plan of Treatment Reminders Order Date Submit Date Provider Last Modified By Organization Details Last Modified Time Details Appointments Any 5 2024 02:45P TOMAS Melchor Not available Not available Not available Any 2024 01:00P TOMAS Melchor Not available Not available Not available Any 5 2024 01:00P TOMAS Melchor Not available Not available Not available Lab None recorded. Referral physical therapist referral - Please contact pt to schedule apt for R hip. Thanks 2024 025 [email or web address] [facility] [place] [facility], [address], [place], [address], 02/16/2025 13:50:55 Procedures knee aspiratio n/injecti on (PROC) 2024 025 [email or web address] In-Office Order, Internal Use Only DO Not Attach Compendium DO Not Attach Compendium, Do Not Delete/merge, 01/11/2025 14:17:27 knee aspiratio n/injecti on (PROC) 2024 025 [email or web address] In-Office Order, Internal Use Only DO Not Attach Compendium DO Not Attach Compendium, Do Not Delete/merge, 01/04/2025 14:02:11 knee aspiratio n/injecti on (PROC) 2024 025 [email or web address] In-Office Order, Internal Use Only DO Not Attach Compendium DO Not Attach Compendium, Do Not Delete/merge, 12/21/2024 14:16:07 injection /aspirati on joint/bur sa (PROC) 2024 025 In-Office Order, Internal Use Only DO Not Attach Compendium DO Not Attach Compendium, Do Not Delete/merge, 10/17/2024 15:10:18 knee aspiratio n/injecti on (PROC) 2023 024 [email or web address] In-Office Order, Internal Use Only DO Not Attach Compendium DO Not Attach Compendium, Do Not Delete/merge, 06/22/2024 13:54:32 Surgeries None recorded. Imaging None recorded. Medication Orders ORTHOVISC 30 mg/2 mL intra-art icular syringe 2024 025 [id number], [address] [place] [address], [address], 01/11/2025 15:05:10 ORTHOVISC 30 mg/2 mL intra-art icular syringe 2024 025 [id number], [address] [place], [address], 01/04/2025 16:04:11 ORTHOVISC 30 mg/2 mL intra-art icular syringe 2024 025 [id number], [address] [place], [address], 12/21/2024 14:50:15 bupivacai ne HCl 0.5 % (5 mg/mL) injection solution 2024 025 [email or web address] [id number], [address] [place], [address], 12/21/2024 14:04:58 Kenalog 10 mg/mL suspensio n for injection 2024 025 [email or web address] [id number], [address] [place], [address], 12/21/2024 14:05:21 ORTHOVISC 30 mg/2 mL intra-art icular syringe 2023 024 [email or web address] [id number], [address] [place], [address], 12/21/2024 14:05:53 Patient TargetsNo targets recorded. Patient [...] No observ ation record ed. [facility] [place] [address], [place], [address], 06/08/2024 14:30:20 06/08/20 24 XR, knee No observ ation record ed. [facility] [place] [address], [place], [address], 06/08/2024 14:31:34 Result Notes None recorded. Problems Name Problem SNOMED Code Status Onset Date Resolution Date Notes Provider Name and Address Organization Details Recorded Time Enthesopat hy of hip region 04464573 Active Not Available [facility] 3 10:42:43 Osteoarthr itis 394992211 Active Not Available [facility] 3 10:42:43 Brachial neuritis 66457868 Active Not Available [facility] 3 10:42:43 Neck pain 40403477 Active Not Available [facility] 3 10:42:43 Spinal stenosis in cervical region 20673491 Active Not Available [facility] 3 10:42:43 Pain in limb 34250086 Active Not Available [facility] 3 10:42:43 Spinal stenosis of lumbar region 86670705 Active 2021 Not Available [facility] 3 10:42:42 Low back pain 012815980 Active 2021 Not Available [facility] 3 10:42:43 Pain of left knee joint 7871117987462 07 Active 2022 Shandra [place] ATC L null, [facility] 3 13:42:57 Osteoarthr itis of left knee joint 8938529308433 09 Active 2022 Shandra [place] ATC L null, [facility] 3 13:43:24 Pain of right hip joint 7216739455764 02 Active 2022 KAILEY Boyd null, [facility] 3 14:27:05 Trochanter ic bursitis of right hip 6837943336757 00 Active 2022 TOMAS Irving [address] [facility], [facility] [address], [place], [address] , [employer] 14:49:15 Problem Notes None recorded. Procedures Surgical History Date Name Laterality Status Provider Name and Address Organization Details Recorded Time 4 procedure on heart completed Shandra [place], ATC L [employer] 10/15/2022 14:17:21 Breast Surgery completed Not Available [facility] 10/07/2022 10:41:01 Eye Surgery completed Not Available [facility] 10/07/2022 10:41:01 Imaging Results None recorded. Procedure Notes None recorded. Medical Equipment None [...] 2 mg by injection route. 12/21 completed [facility][NOTE 3]: 0003- 0494- 20 Not Available Not Available Not Available omeprazole 20 mg capsule,del ayed release 20 MG ORALLY TWICE A DAY active Not Available Not Available No t Available Marcaine (PF) 0.5 % (5 mg/mL) injection solution Take 4 mL by injection route. 12/21 completed NDC:0 96936 1050, HM066 9, 01/07 Not Available Not [...] 20 mg by injection route. 11/17 completed [facility][NOTE 3] 78315 -064- 01 Not Available Not Available Not Available Supartz FX 10 mg/mL intra-artic ular syringe Injection s given in the office by the doctor 11/17 completed NDC: 12172 -[address]44 -1 Not Available Not Available Not [...] Updated DateTime 10/17/2024 165.1 cm 28.3 kg/m2 25598.7 g Shabana Ruby Fuentes [facility] 10/17/2024 15:08:56 Date Recorded Body height Provider Name an d Address Organization Details Last Updated DateTime 12/21/2024 165.1 cm Judith Jeferson, [facility] 12/21/2024 14:04:44 Date Recorded Body height Body mass index (BMI) Body weight Provider Name and Address Organization Details Last Updated DateTime 01/04/2025 162.56 cm 29.2 kg/m2 75843.7 g Judith Jeferson, [facility] 01/04/2025 13:59:50 Date Recorded Body height Body mass index (BMI) Body weight Provider Name and Address Organization Details Last Updated DateTime 01/11/2025 162.56 cm 29.2 kg/m2 13062.7 g Judith Jonastrevor [facility] [employer] 01/11/2025 14:13:34 Date Recorded Body height Body mass index (BMI) Body weight Provider Name and Address Organization Details Last Updated DateTime 06/22/2024 165.1 cm 28.3 kg/m2 74393.7 g Judith Govea [facility] [employer] 06/22/2024 13:53:07 Social History Question Answer Notes LastModified by [employer] Details LastModified Time Tobacco Smoking Status Never Smoker DEEPA Jasso [facility] 11/18/2023 14:10:15 What Was The Date Of Your Most Recent Tobacco Screening? 08/21/2021 [id number] Information not available 10/07/2022 Sex: Unknown Functional Status Question Answer Note LastModified by Organizat ion Details LastModified Time What is your level of alcohol consumption? Occasional [id number] Information not available 10/07/2022 Mental Status None recorded. Family History Relationship Description Onset Age of this Age Resolved Age Notes LastModified by Organization Details LastModified Time Father Heart disease [id number] Not available 10/07/2022 10:41:03 Father Family history of malignant neoplasm [id number] Not available 10/07/2022 10:41:03 Mother Alzheimer's disease [email or web address] Not available 2023 14:10:00 Medical History Condition Response ARTHRITIS Y CARDIAC ARRHYTHMIA Y CANCER: SPECIFY Y HEART ARRHYTHMIA Y Gynecological HistoryNo gynecological history recorded. Obstetrics History GPAL:G 0 P 0 0 0 0 Past Encounters Encounter ID Performer Location Encounter Start Date Encounter Closed Date Diagnosis/Indication Diagnosis SNOMED-CT Code Diagnosis ICD10 Code Diagnosis Note [id number] Danyel Quintana MD [facility] [place] [address] [place] [address] 08/21/2021 00:00:00 08/21/2021 14:55:00 [id number] Danyel Quintana MD [facility] [place] [address] [place] [address] 08/28/2021 00:00:00 08/28/2021 14:19:11 [id number] Danyel Quintana MD [facility] [place] [address] [place] [address] 09/04/2021 00:00:00 09/04/2021 14:00:29 [id number] Danyel Quintana MD [facility] [place] [address] [place] [address] 09/09/2021 00:00:00 09/09/2021 14:41:20 [id number] Danyel Quintana MD [facility] [place] [address] [place] [address] 09/18/2021 00:00:00 09/18/2021 14:09:01 [id number] Danyel Quintana MD [facility] [place] [address] [place] [address] 03/24/2022 00:00:00 03/24/2022 15:01:37 [id number] Danyel Quintana MD [facility] [place] [address] [place], [place] [address] 03/31/2022 00:00:00 03/31/2022 14:50:06 [id number] Danyel Quintana MD [facility] [place] [address] [place] [address] 04/07/2022 00:00:00 04/07/2022 16:20:17 [id number] Danyel Quintana MD [facility] [place] [address] [place] [address] 05/07/2022 00:00:00 05/07/2022 14:01:57 [id number] TOMAS Irving [facility] [place] [address] [place] [address] 10/08/2022 13:33:39 10/08/2022 15:07:31 Pain of left knee joint 9424388283 40853 M25.562 Spinal stephanie nosis of lumbar region 57312444 M48.062 Osteoarthr itis of left knee joint 9091466644 76726 M17.12 Low back pain 371979582 M54.50 [id number] TOMAS Irving [facility] [place] [address] [place] [address] 10/15/2022 13:54:56 10/15/2022 16:30:33 Pain of left knee joint 9412306307 39210 M25.562 Spinal stephanie nosis of lumbar region 26810867 M48.062 Osteoarthr itis of left knee joint 5637949329 99611 M17.12 Low back pain 781092038 M54.50 [id number] Danyel Quintana MD [facility] [place] [address] [place] [address] 10/22/2022 13:38:15 10/22/2022 15:15:23 Spinal stenosis of lumbar region 57756510 M48.062 Pain of le ft knee joint 5837592633 64221 M25.562 Low back pain 788743168 M54.50 Osteoarthr itis of left knee joint 4997594365 73965 M17.12 [id number] Danyel Quintana MD [facility] [place] [address] [place] [address] 04/27/2023 14:11:07 04/27/2023 14:33:31 Osteoarthritis of left knee joint 5270496252 64284 M17.12 [id number] Qamar Adler MD [facility] [place] [address] [place] [address] 05/04/2023 14:21:28 05/04/2023 14:50:24 Osteoarthritis of left knee joint 0649767637 59435 M17.12 Pain of ri ght hip joint 7684832388 89825 M25.551 Trochanter ic bursitis of right hip 8031662817 49039 M70.61 [id number] Qamar Adler MD [facility] [place] [address] [place] [address] 05/18/2023 14:32:58 05/18/2023 14:52:30 Trochanteric bursitis of right hip 2164059785 10841 M70.61 Pain of ri ght hip joint 2109616205 49124 M25.551 Osteoarthr itis of left knee joint 8886879706 12849 M17.12 [id number] Qamar Adler MD [facility] [place] [address] [place] [address] 08/19/2023 13:45:22 08/19/2023 15:15:16 Trochanteric bursitis of right hip 9441296052 84485 M70.61 Pain of ri ght hip joint 4447117917 21344 M25.586 [id number] Kike Urrutia MD [facility] [place] [address] [place] [address] 11/18/2023 13:48:49 11/18/2023 14:41:27 Pain of right hip joint 4647362926 64254 M25.551 Trochanter ic bursitis of right hip 7111818401 20866 M70.61 Osteoarthr itis of left knee joint 3983953835 59889 M17.12 Pain of le ft knee joint 1183595724 28555 M25.343 [id number] Kike Urrutia MD [facility] [place] [address] [place] [address] 11/25/2023 13:48:06 11/25/2023 14:06:54 Osteoarthritis of left knee joint 8683697171 58683 M17.12 Pain of le ft knee joint 0446735408 08819 M25.562 Trochanter ic bursitis of right hip 2198114556 96279 M70.61 [id number] Kike Urrutia MD [facility] [place] [address] [place] [address] 12/07/2023 14:25:17 12/07/2023 14:52:43 Osteoarthritis of left knee joint 0618367756 91454 M17.12 Pain of le ft knee joint 5790413240 49837 M25.506 [id number] Kike Urrutia MD [facility] [place] [address] [place] [address] 02/17/2024 13:49:58 02/17/2024 14:23:45 Pain of right hip joint 4880377729 57376 M25.551 Trochanter ic bursitis of right hip 0910663414 49686 M70.61 [id number] Kike Urrutia MD [facility] [place] [address] [place] [address] 06/08/2024 13:47:24 06/08/2024 14:24:33 Pain of right hip joint 3185154528 53303 M25.551 Trochanter ic bursitis of right hip 9789474254 23931 M70.61 Osteoarthr itis of left knee joint 2014385589 98801 M17.12 Pain of le ft knee joint 9323175559 45460 M25.971 [id number] Kike Urrutia MD [facility] [place] [address] [place] [address] 06/15/2024 13:42:38 06/15/2024 13:58:44 Osteoarthritis of left knee joint 8598550715 84471 M17.12 Pain of le ft knee joint 8120197260 77371 M25.562 Trochanter ic bursitis of right hip 2212912386 52783 M70.61 [id number] Kike Urrutia MD [facility] [place] [address] [place] [address] 06/22/2024 13:50:37 06/22/2024 14:12:07 Osteoarthritis of left knee joint 0655930009 66362 M17.12 Pain of le ft knee joint 8285878466 17510 M25.739 [id number] Kike Urrutia MD [facility] [place] [address] [place] [address] 10/17/2024 15:05:30 10/17/2024 15:35:48 Trochanteric bursitis of right hip 9716012796 98837 M70.61 Pain of ri ght hip joint 7633793246 77732 M25.290 [id number] Kike Urrutia MD [facility] [place] [address] [place] [address] 12/21/2024 13:55:46 12/21/2024 14:39:36 Osteoarthritis of left knee joint 6593057085 54112 M17.12 Pain of le ft knee joint 2405785769 74490 M25.562 Trochanter ic bursitis of right hip 2702056155 53174 M70.61 [id number] Kike Urrutia MD [facility] [place] [address] [place] [address] 01/04/2025 13:56:00 01/04/2025 14:23:24 Osteoarthritis of left knee joint 0634613216 50399 M17.12 Pain of le ft knee joint 6805225486 69828 M25.831 [id number] Kike Urrutia MD [facility] [place] [address] [place] [address] 01/11/2025 14:06:47 01/11/2025 14:38:33 Osteoarthritis of left knee joint 1887061769 22121 M17.12 Pain of le ft knee joint 4270245941 85452 M25.562 Health Concerns Section Related Observation LastModified by Organization Detai ls LastModified Time None Recorded Concern Status LastModified by Organization Details LastModified Time None Recorded Advance Directives Directive None Recorded Payers Insurance Date Sequence Insurance Name Policy Number Policy Mcfadden Covered Member ID Mcfadden Member ID Guarantor Name 01/08/2025 1 [place] Ruby Callahan [id number] Ruby Callahan 12/21/2024 2 [employer] - PLAN F (MEDICARE SUPPLEMENT) Ruby Callahan [id number] Ruby Callahan OBGyn Episode No OBEpisode recorded.
--- OUTSIDE RECORDS SUMMARY | 2025-03-06 15:21 | XMS_ITS | Clinical Summary ---
Author Organization [email or web address] [facility] Address [address] [facility] Attn: Epic Prelude ADT [place] [address] Care Team Providers Care [employer] Department Chair Name Role Phone Unavailable Primary Care Provider Unavailabl e Social History Tobacco Use Types Packs/Day Years Used Date Smoking Tobacco: Never Assessed Comments Unknown Sex and Gender Information Value Date Recorded Sex Assigned at Not on file Legal Sex Female 5:[address] Gender Identity Not on file Sexual Orientation Not on file Plan of Treatment Health Maintenance Due Date Last Done Comments DTAP/TDAP/TD VACCINES (1 - Tdap) 11/12/1962 PNEUMOCOCCAL VACCINE 50+ YEARS (1 of 1 - PCV) 11/12/18 94 ZOSTER VACCINE (1 of 2) 11/12/1993 OSTEOPOROSIS SCREENING 11/12/2008 RSV VACCINE (60+ or ) (1 - 1-dose 75+ series) 11/12/2018 INFLUENZA VACCINE (#1) 2025
== END 2025-03-06 15:16 | disposition home or self-care (01) ==
PROVIDERS: PCP Family Medicine Adolescent Medicine; Visit Provider Obstetrics & Gynecology
DX: R19.09 Other intra-abdominal and pelvic swelling, mass and lump (principal)
CPT/HCPCS: 86304

== ENCOUNTER 2025-06-11 13:45 | Outpatient (RCR) | payer MEDICARE, SELFPAY ==
--- NOTE | 2025-04-30 14:27 | OPREHPOC ---
Outpatient Therapy Plan of Care This is a Multidisciplinary Plan of Care that may contain components documented by all disciplines (PT, OT, and ST.) PT Problem 1 PT Problem #1 Knowledge Deficit PT Goal 1 Goal / Goal Update 1. Patient will perform independent HEP Target Visit 3 PT Problem 2 PT Problem #2 Pain PT Goal 1 Goal / Goal Update 1. No pain with pelvic exam to allow for medical management as needed Target Visit 5 PT Problem 3 PT Problem #3 Impaired Strength PT Goal 1 Goal / Goal Update 1. Hip strength 5/5 in all planes Target Visit 5 PT Problem 4 PT Problem #4 Impaired Functional ADLs PT Goal 1 Goal / Goal Update 1. Patient will be able to do all activities without any limitation from pain Target Visit 5
--- NOTE | 2025-04-30 14:27 | PTOPEVAL1 ---
Assessment and note entered by Trena Buitrago DPT Evaluation Information Assessment Status Evaluation ICD-10 Condition Codes (PT) Pain in low back M54.50,Weakness R53.1,Pelvic and perineal pain R10.2 Subjective Information Pt reports pain that started about 4 years ago. Pain is mostly in her L abdomen but sometimes moves to the R. Has previously been diagnosed with IBS and has had some other testing done. Cyst on ovary, d and c in November this year due to fluid in her uterus. Pt does have a hernia on her R and umbilical. Highest pain recently 4/10 and lowest 0 /10. Denies n/t. Pt is unsure what causes pain, sometimes is with activity and sometimes is at rest. Does have back pain and has been told she has bone spurs in her back. Voids 6-8 times a day, 1-2 times at night. Can hold urge to void 30- 60 minutes depending on the situation. Denies pain with urination. Urinary incontinence with coughing or sneezing, 2 times a month on average. Does wear light pads. BM multiple times a day but can be variable due to IBS, some bowel urgency as well. Minor history of pelvic pain with tampon use , some pain with intercourse after menopause due to dryness. Pt has been never been . History of endometriosis and very painful periods. Breast cancer in 2007. Patient goal: get some exercises to help the pain Returns to MD in October. Reported Pain Level Pain Score 0: Self Report Assessment PT Clinical Summary The patient is presenting to skilled therapy with a several year history of pelvic pain/radiating abdominal pain. She presents with increased pelvic floor muscle tone L>R, decreased hip strength, and tenderness to palpation. These impairments are contributing to her pain and she will benefit from therapy to address pain in order to return to full function. Plan of Care Interventions Electrical Stimulation,Gait Training,Hot Pack/Cold Pack,Manual Therapy,Neuro Re-education,Patient/ Caregiver Education,Therapeutic Activities, Therapeutic Exercise PT Services Indicated Yes Treatment Frequency and 1 visit every week (as allowed by patient's travel Duration schedule) x 5 visits total These treatments will address the objective and functional deficits as defined above. The patient will be advanced safely and appropriately in order for the patient to progress towards his/her prior level of function. Additional exercises will be introduced and as well as a comprehensive home exercise program upon discharge, if needed, ?to ensure carryover of functional gains achieved in the clinic. This treatment plan has been reviewed and agreement upon by the patient.
--- NOTE | 2025-07-18 15:41 | PCPTNOTE ---
Patient cancelled appointment for 07/18/25, states she is doing great and can be discharged.
--- NOTE | 2025-07-19 09:54 | PTOPDC ---
Assessment and note entered by Trena Buitrago DPT Evaluation Information Assessment Status Discharge - Pt Not Present ICD-10 Condition Codes (PT) Pain in low back M54.50,Weakness R53.1,Pelvic and perineal pain R10.2 Subjective Information - Assessment PT Clinical Summary The patient is self discharging at this time. She reports she feels great and has no current therapy needs. Plan of Care PT Services Indicated No
== END 2025-07-19 14:41 | disposition home or self-care (01) ==
LOC: ANHGOSHPT 13:45
PROVIDERS: PCP Family Medicine Adolescent Medicine; Visit Provider Obstetrics & Gynecology
DX: R10.2 Pelvic and perineal pain (principal); M54.50 Low back pain, unspecified; R53.1 Weakness
CPT/HCPCS: 97110; 97112; 97140; 97161; 97530

== ENCOUNTER 2025-06-26 13:24 | Outpatient (CLI) | payer MEDICARE, SELFPAY ==
--- NOTE | ~2025-06-26 | MM_ITS ---
EXAMINATION: MM screening tamra BI w lacey HISTORY: Screening TECHNIQUE: Craniocaudal and mediolateral oblique 3-D tomosynthesis images were obtained and synthetic 2-D images were generated. CAD analysis was submitted and interpreted. COMPARISON: Comparison to multiple prior studies sequentially, with oldest reviewed study dated 01/09/2019. BREAST PARENCHYMAL COMPOSITION: Not dense: There are scattered areas of fibroglandular density. FINDINGS: There is no evidence of suspicious mass, calcification, or architectural distortion to suggest malignancy in either breast. There has been no suspicious interval change. IMPRESSION: 1. No mammographic evidence of malignancy. 2. Recommend routine screening mammography in one year. BI-RADS Category 1: Negative Reviewed, dictated and finalized at location [facility]
== END 2025-06-26 13:25 | disposition home or self-care (01) ==
LOC: MICIMG 13:25
PROVIDERS: PCP Family Medicine; Visit Provider Obstetrics & Gynecology
DX: Z12.31 Encounter for screening mammogram for malignant neoplasm of breast (principal)
CPT/HCPCS: 77063; 77067